=== PATIENT | female | born 1950 | race Caucasian/White ===

== ENCOUNTER 2020-11-23 11:32 | Outpatient (REF) | payer MEDICARE, SELFPAY ==
[2020-11-23 12:21] LABS: MANUAL DIFF FLAG NO
[2020-11-23 12:56] LABS: Basophils Absolute Auto 0.1 X10*3/uL (0.0-0.2); Basophils Percent Auto 1.6 % (0-2); Eosinophils Absolute Auto 0.4 X10*3/uL (0.0-0.4); Eosinophils Percent Auto 8.8 % (0-4); Hematocrit 39.7 % (37-47); Hemoglobin 12.8 g/dl (12.0-16.0); Imm Gran Abs Auto 0.01 X10*3/uL (0.00-0.03); Imm Gran Pct Auto 0.2 % (0.0-0.4); Lymphocytes Absolute Auto 1.6 X10*3/uL (1.2-4.9); Lymphocytes Percent Auto 31.5 % (20-40); Mean Corpuscular HGB Conc 32.2 g/dl (31.0-35.0); Mean Corpuscular Hemoglobin 30.7 pg (27.0-33.0); Mean Corpuscular Volume 95.2 fL (80-98); Mean Platelet Volume 11.2 fL (9.4-12.3); Monocytes Absolute Auto 0.6 X10*3/uL (0.1-1.2); Neutrophils Absolute Auto 2.4 X10*3/uL (2.0-8.3); Neutrophils Percent Auto 46.9 % (45-73); Platelet Count 246 X10*3/uL (160-400); Red Blood Count 4.17 X10*6/uL (4.20-5.50)
[2020-11-23 13:03] LABS: Glucose Urine UA NEG (NEG); Leukocyte Esterase Urine NEG (NEG); Nitrite Urine NEG (NEG); PH 5.5 (5.0-8.0); Specific Gravity - Urine 1.025 (1.005-1.025); Urine Blood NEG (NEG); Urine Ketones NEG (NEG); Urine Protein NEG (NEG-TRACE)
[2020-11-23 13:10] LABS: Appearance Urine CLEAR; Color Urine YELLOW
[2020-11-23 13:22] LABS: Alanine Aminotransferase 33 U/L (0-31); Albumin Level 4.5 g/dL (3.5-5.0); Alkaline Phosphatase 79 U/L (39-117); Anion Gap 12 (12-20); Aspartate Amino Transferase 29 U/L (5-31); Bilirubin Total 0.8 mg/dL (0.0-1.0); Blood Urea Nitrogen 24 mg/dL (9-16); Calcium 9.4 mg/dL (8.4-10.2); Carbon Dioxide 28 mmol/L (22-29); Chloride 105 mmol/L (96-108); Cholesterol 191 mg/dL; Estimated Glomerular Filt Rate > 60; Glucose Fasting 80 mg/dL (60-99); HDL Cholesterol 50 mg/dL; LDL Cholesterol Calculated 120 mg/dl; Potassium 3.8 mmol/L (3.3-5.1); Sodium 141 mmol/L (135-145); Total Protein 7.1 g/dL (6.5-8.0); Triglycerides 105 mg/dL
[2020-11-23 13:54] LABS: Thyroid Stimulating Hormone 0.52 uIU/mL (0.32-4.0)
== END 2020-11-23 11:33 | disposition home or self-care (01) ==
LOC: HO.LNP 11:32
PROVIDERS: PCP Internal Medicine; Visit Provider Internal Medicine
DX: E03.9 Hypothyroidism, unspecified (principal); D72.820 Lymphocytosis (symptomatic)
CPT/HCPCS: 80053; 80061; 81003; 84443; 85025

== ENCOUNTER 2020-11-27 16:03 | Outpatient (REF) | payer MEDICARE, SELFPAY ==
[2020-11-27 16:47] LABS: Blood Urea Nitrogen 25 mg/dL (9-16)
== END 2020-11-27 16:04 | disposition home or self-care (01) ==
LOC: HO.LNP 16:03
PROVIDERS: Visit Provider Internal Medicine
DX: R79.9 Abnormal finding of blood chemistry, unspecified (principal)
CPT/HCPCS: 84520

== ENCOUNTER 2020-12-29 10:10 | Outpatient (REF) | payer MEDICARE, SELFPAY ==
[2020-12-29 10:54] LABS: Blood Urea Nitrogen 19 mg/dL (9-16)
== END 2020-12-29 10:11 | disposition home or self-care (01) ==
LOC: HO.LNP 10:10
PROVIDERS: Visit Provider Internal Medicine
DX: R79.9 Abnormal finding of blood chemistry, unspecified (principal)
CPT/HCPCS: 84520

== ENCOUNTER 2021-11-27 10:17 | Outpatient (REF) | payer MEDICARE, SELFPAY ==
[2021-11-27 10:19] LABS: MANUAL DIFF FLAG NO
[2021-11-27 10:53] LABS: Basophils Percent Auto 0.9 % (0-2); Eosinophils Absolute Auto 0.1 X10*3/uL (0.0-0.4); Eosinophils Percent Auto 2.2 % (0-4); Hematocrit 38.6 % (37.0-47.0); Hemoglobin 12.5 g/dl (12.0-16.0); Imm Gran Abs Auto 0.01 X10*3/uL (0.00-0.03); Imm Gran Pct Auto 0.2 % (0.0-0.4); Lymphocytes Absolute Auto 1.7 X10*3/uL (1.2-4.9); Mean Corpuscular HGB Conc 32.4 g/dl (31.0-35.0); Mean Corpuscular Hemoglobin 31.2 pg (27.0-33.0); Mean Corpuscular Volume 96.3 fL (80.0-98.0); Monocytes Absolute Auto 0.4 X10*3/uL (0.1-1.2); Monocytes Percent Auto 9.9 % (2-11); Neutrophils Absolute Auto 2.1 x10*3/uL (2.0-8.3); Neutrophils Percent Auto 47.8 % (45-73); Platelet Count 225 X10*3/uL (160-400); Red Blood Count 4.01 X10*6/uL (4.20-5.50); Red Cell Distribution Width 13.1 % (11.0-16.0); White Blood Count 4.5 X10*3/uL (4.8-10.8)
[2021-11-27 11:01] LABS: Appearance Urine CLEAR; Color Urine YELLOW; Glucose Urine UA NEG (NEG); Leukocyte Esterase Urine NEG (NEG); Nitrite Urine NEG (NEG); Specific Gravity - Urine 1.025 (1.005-1.025); Urine Blood NEG (NEG); Urine Ketones NEG (NEG); Urine Protein NEG (NEG-TRACE)
[2021-11-27 11:10] LABS: Alanine Aminotransferase 21 U/L (0-31); Albumin Level 4.2 g/dL (3.5-5.0); Alkaline Phosphatase 76 U/L (39-117); Anion Gap 12 (12-20); Aspartate Amino Transferase 22 U/L (5-31); Bilirubin Total 0.9 mg/dL (0.0-1.0); Blood Urea Nitrogen 20 mg/dL (9-16); Carbon Dioxide 28 mmol/L (22-29); Chloride 106 mmol/L (96-108); Cholesterol 190 mg/dL; Estimated Glomerular Filt Rate > 60; Glucose Fasting 94 mg/dL (60-99); HDL Cholesterol 56 mg/dL; LDL Cholesterol Calculated 117 mg/dl; Potassium 4.2 mmol/L (3.3-5.1); Sodium 142 mmol/L (135-145); Triglycerides 86 mg/dL
[2021-11-27 11:31] LABS: TSH reflex Free T4 0.49 uIU/mL (0.32-4.0)
== END 2021-11-27 10:18 | disposition home or self-care (01) ==
LOC: HO.LNP 10:17
PROVIDERS: PCP Internal Medicine; Visit Provider Internal Medicine
DX: E03.9 Hypothyroidism, unspecified (principal); D72.820 Lymphocytosis (symptomatic)
CPT/HCPCS: 80053; 80061; 81003; 84443; 85025

== ENCOUNTER 2022-10-04 08:13 | Day surgery (SDC) | payer MEDICARE, SELFPAY ==
--- NOTE | 2022-10-03 11:58 | HO.ANESPROP2 ---
Documented by User: Leanna Naranjo NP 10/03/22 11:59 HPI - Anesthesia Eval Consult details Narrative: 72yo F for ?Colonoscopy [facility] Past Medical History Medical History (Updated 10/03/22 @ 10:46 by Gali Aguilar RN) Hypothyroidism Surgical History Surgical History (Updated 10/03/22 @ 10:46 by Gali Aguilar RN) H/O colonoscopy History of laparoscopy History of repair of ACL History of repair of inguinal hernia Social History Social History Patient Tobacco Use Status: Never used Tobacco Are you DNR?: No Advance Directives: No Advance Directives Information Provided: Yes Recently lost weight without trying: No Nutrition Risks: No Nutritional Risk Meds Allergies Allergy/AdvReac Type Severity Reaction Status Date / Time Penicillins [PCN] Allergy Hives Verified 10/04/22 08:34 Home Medications Medication Instructions Recorded Confirmed Last Taken Type cholecalciferol (vitamin D3) 25 mcg PO DAILY 10/03/22 10/03/22 10/02/22 History levothyroxine 200 mcg tablet 200 tab PO DAILY 10/03/22 10/04/22 10/03/22 History (Levoxyl) multivitamin 1 mg PO DAILY 10/03/22 10/04/22 10/02/22 History Exam Exam Date and Time: October 03, 2022 1158 Assessment and Plan Assessment Anesthesia Assessment: Chart Reviewed Documented by User: Kadeem Chin MD 10/05/22 17:16 [facility] Past Medical History Medical History (Updated 10/03/22 @ 10:46 by Gali Aguilar RN) Hypothyroidism Functional capacity: independent ambulation Family History Family history of problems with anesthesia: No Surgical History Surgical History (Updated 10/03/22 @ 10:46 by Gali Aguilar RN) H/O colonoscopy History of laparoscopy History of repair of ACL History of repair of inguinal hernia History of Problems with Anesthesia: No Social History Social History Patient Tobacco Use Status: Never used Tobacco Are you DNR?: No Advance Directives: No Advance Directives Information Provided: Yes Recently lost weight without trying: No Nutrition Risks: No Nutritional Risk Meds Allergies Allergy/AdvReac Type Severity Reaction Status Date / Time Penicillins [PCN] Allergy Hives Verified 10/04/22 08:34 Home Medications Medication Instructions Recorded Confirmed Last Taken Type cholecalciferol (vitamin D3) 25 mcg PO DAILY 10/03/22 10/03/22 10/02/22 History levothyroxine 200 mcg tablet 200 tab PO DAILY 10/03/22 10/04/22 10/03/22 History (Levoxyl) multivitamin 1 mg PO DAILY 10/03/22 10/04/22 10/02/22 History Exam Airway Mallampati Class: III TM Dist: >3cm Neck ROM: Full Loose/Missing/Broken Teeth: Yes (Implants , front upper tooth chipped ) Heart: S1,S2 Lungs: b/l breath sounds Assessment and Plan Assessment Anesthesia Assessment: Anesthesia Plan Discussed Final Anesthetic Review Family History of Problems with Anesthesia: No History of Problems with Anesthesia: No NPO: Yes ASA Class: II Final Preanesthetic Review: Meds/Allgs Chart Reviewed, Consent Obtained/Reviewed and Anes Risks/Benef Reviewed Patient Risk: Intermediate Procedure Risk: Intermediate Anesthetic Plan Anesthetic Plan: MAC: Disposition: Standard PACU
[2022-10-04 08:23] VITALS: BMI 23.8
[2022-10-04 08:25] VITALS: BP 107/80; PULSE 99; RESP 20; TEMP 36.8; O2SAT 99
[2022-10-04] MEDS: Lactated Ringers 1,000 ML 100 ML IVCONT (08:46)
--- NOTE | 2022-10-04 10:33 | PM.OP ---
Brief Operative Note Date of Service: 10/04/22 Pre-op diagnosis: Screening Post-op diagnosis: other (Diverticulosis, Internal/External hemorrhoids) Procedure: Colonoscopy to the cecum and TI Surgeon: Jhony Love Anesthesia: MAC Was an Shipper And Receiving used for this Procedure?: No Estimated blood loss (mL): 0 Pathology: none sent Condition: stable Disposition: PACU
[2022-10-04 10:35] VITALS: BP 98/61; PULSE 71; RESP 17; TEMP 36.2; O2SAT 99
[2022-10-04 10:50] VITALS: BP 104/72; PULSE 71; RESP 18; TEMP 36.8; O2SAT 97
--- NOTE | 2022-10-04 11:02 | OP_ITS ---
SURGEON: Jhony Love MD INDICATIONS: The patient presents for evaluation of colorectal cancer screening. Full consent obtained from her for this, including risks of bleeding and perforation. PREOPERATIVE DIAGNOSIS: Colorectal cancer screening. POSTOPERATIVE DIAGNOSIS: PROCEDURE PERFORMED: Colonoscopy to the cecum and terminal ileum. ESTIMATED BLOOD LOSS: COMPLICATIONS: ANESTHESIA: Monitored anesthesia care. ASSISTANTS: SPECIMENS: POSTOPERATIVE DIAGNOSES: Colorectal cancer screening, diverticulosis, internal and external hemorrhoids. DESCRIPTION OF PROCEDURE: The patient was placed in the left lateral decubitus position. The digital rectal exam revealed external hemorrhoidal tissue. The Olympus video pediatric colonoscope was entered into the rectum and advanced to the cecum with the assistance of abdominal wall pressure. Once in the cecum, I did identify normal-appearing cecal pouch with appendiceal orifice and a normal-appearing ileocecal valve. The terminal ileum was cannulated and appeared normal. The scope was withdrawn back in the colon. The entire cecum and ileocecal valve appeared normal. The appendiceal orifice appeared normal. The scope was then slowly withdrawn assessing all mucosal surfaces carefully. Preparation was excellent. I did not visualize any sign of polyps, colitis, or angiodysplasia. There was a mild amount of sigmoid diverticulosis. In the rectum, scope was retroflexed visualizing internal hemorrhoids, but no other pathology. The rectal mucosa appeared normal. The scope was straightened and withdrawn from the patient. She tolerated the procedure well and was returned to the recovery area in stable condition. IMPRESSION: 1. Diverticulosis. 2. Internal and external hemorrhoids. PLAN: Given that this was her 3rd negative colonoscopy and has no family history of colon cancer, she probably will not need any further screening colonoscopies since 10 years from now she will be 82 and the current guidelines recommend holding off on screening colonoscopies at that age. As such, she will see me on a p.r.n. basis. MD NIRU Alexander/JESSE / [id number] MTDD
== END 2022-10-04 11:32 | disposition home or self-care (01) ==
PROVIDERS: PCP Internal Medicine; Visit Provider Internal Medicine
PROC: 0DJD8ZZ Inspection of Lower Intestinal Tract, Via Natural or Artificial Opening Endoscopic (ICD-10-PCS; CPT 45378; principal; 2022-10-04 09:30)
DX: Z12.11 Encounter for screening for malignant neoplasm of colon (principal); K57.30 Diverticulosis of large intestine without perforation or abscess without bleeding; K64.8 Other hemorrhoids; K64.4 Residual hemorrhoidal skin tags; E03.9 Hypothyroidism, unspecified; Z79.899 Other long term (current) drug therapy
CPT/HCPCS: G0121

== ENCOUNTER 2022-12-02 10:45 | Outpatient (REF) | payer MEDICARE, SELFPAY ==
[2022-12-02 10:49] LABS: MANUAL DIFF FLAG NO
[2022-12-02 10:53] LABS: Basophils Absolute Auto 0.1 X10*3/uL (0.0-0.2); Basophils Percent Auto 1.8 % (0-2); Eosinophils Absolute Auto 0.3 X10*3/uL (0.0-0.4); Eosinophils Percent Auto 6.9 % (0-4); Hematocrit 40.2 % (37.0-47.0); Hemoglobin 13.2 g/dl (12.0-16.0); Lymphocytes Absolute Auto 1.6 X10*3/uL (1.2-4.9); Lymphocytes Percent Auto 41.4 % (20-40); Mean Corpuscular HGB Conc 32.8 g/dl (31.0-35.0); Mean Corpuscular Hemoglobin 30.6 pg (27.0-33.0); Mean Corpuscular Volume 93.1 fL (80.0-98.0); Monocytes Absolute Auto 0.4 X10*3/uL (0.1-1.2); Monocytes Percent Auto 10.5 % (2-11); Neutrophils Absolute Auto 1.5 x10*3/uL (2.0-8.3); Neutrophils Percent Auto 39.4 % (45-73); Platelet Count 228 X10*3/uL (160-400); Red Blood Count 4.32 X10*6/uL (4.20-5.50); Red Cell Distribution Width 12.9 % (11.0-16.0); White Blood Count 3.9 X10*3/uL (4.8-10.8)
[2022-12-02 11:04] LABS: Appearance Urine Clear; Color Urine Yellow; Glucose Urine UA Negative (Negative); Leukocyte Esterase Urine Trace (Negative); Nitrite Urine Negative (Negative); UMIC TRIGGER UACC YES; Urine Blood Negative (Negative); Urine Ketones Negative (Negative); Urine Protein Negative (Neg-Trace)
[2022-12-02 11:16] LABS: Bacteria Urine None Seen (None Seen); Hyaline Casts Urine 0-2 /LPF (0-2); RBC Urine 0-2 /HPF (0-2); Squamous Epithelial Cell Urine 0-2 /HPF (0-2); WBC Urine 0-5 /HPF (0-5)
[2022-12-02 11:21] LABS: Calcium Oxalate Crystals Urine Present
[2022-12-02 11:28] LABS: Alanine Aminotransferase 24 U/L (0-31); Albumin Level 4.2 g/dL (3.5-5.0); Alkaline Phosphatase 84 U/L (39-117); Anion Gap 13 (12-20); Aspartate Amino Transferase 25 U/L (5-31); Bilirubin Total 0.9 mg/dL (0.0-1.0); Blood Urea Nitrogen 21 mg/dL (9-16); Calcium 9.8 mg/dL (8.4-10.2); Carbon Dioxide 28 mmol/L (22-29); Chloride 108 mmol/L (96-108); Cholesterol 190 mg/dL; Estimated Glomerular Filt Rate > 60; Glucose Fasting 85 mg/dL (60-99); HDL Cholesterol 54 mg/dL; LDL Cholesterol Calculated 122 mg/dl; Potassium 4.5 mmol/L (3.3-5.1); Sodium 144 mmol/L (135-145); Total Protein 7.1 g/dL (6.5-8.0); Triglycerides 72 mg/dL
[2022-12-02 11:44] LABS: TSH reflex Free T4 0.67 uIU/mL (0.32-4.0)
== END 2022-12-02 10:46 | disposition home or self-care (01) ==
LOC: HO.LNP 10:45
PROVIDERS: Visit Provider Internal Medicine
DX: E03.9 Hypothyroidism, unspecified (principal); D72.820 Lymphocytosis (symptomatic)
CPT/HCPCS: 80053; 80061; 81001; 81003; 84443; 85025

== ENCOUNTER 2022-12-09 10:54 | Outpatient (REF) | payer MEDICARE, SELFPAY ==
[2022-12-09 10:57] LABS: MANUAL DIFF FLAG NO
[2022-12-09 11:32] LABS: Basophils Absolute Auto 0.1 X10*3/uL (0.0-0.2); Basophils Percent Auto 1.6 % (0-2); Eosinophils Absolute Auto 0.2 X10*3/uL (0.0-0.4); Eosinophils Percent Auto 3.6 % (0-4); Hematocrit 37.6 % (37.0-47.0); Hemoglobin 12.3 g/dl (12.0-16.0); Lymphocytes Absolute Auto 1.6 X10*3/uL (1.2-4.9); Lymphocytes Percent Auto 32.7 % (20-40); Mean Corpuscular HGB Conc 32.7 g/dl (31.0-35.0); Mean Corpuscular Hemoglobin 30.7 pg (27.0-33.0); Mean Corpuscular Volume 93.8 fL (80.0-98.0); Mean Platelet Volume 10.5 fL (9.4-12.3); Monocytes Absolute Auto 0.5 X10*3/uL (0.1-1.2); Monocytes Percent Auto 9.6 % (2-11); Neutrophils Absolute Auto 2.6 x10*3/uL (2.0-8.3); Neutrophils Percent Auto 52.5 % (45-73); Platelet Count 218 X10*3/uL (160-400); Red Blood Count 4.01 X10*6/uL (4.20-5.50); Red Cell Distribution Width 12.8 % (11.0-16.0)
== END 2022-12-09 10:55 | disposition home or self-care (01) ==
LOC: HO.LNP 10:54
PROVIDERS: Visit Provider Internal Medicine
DX: D72.820 Lymphocytosis (symptomatic) (principal)
CPT/HCPCS: 85025

== ENCOUNTER 2023-06-12 11:00 | Outpatient (REF) | payer MEDICARE, SELFPAY ==
[2023-06-12 11:52] LABS: TSH reflex Free T4 1.67 uIU/mL (0.32-4.0)
== END 2023-06-12 11:01 | disposition home or self-care (01) ==
LOC: HO.LNP 11:00
PROVIDERS: Visit Provider Internal Medicine
DX: E03.9 Hypothyroidism, unspecified (principal)
CPT/HCPCS: 84443

== ENCOUNTER 2023-12-05 12:10 | Outpatient (REF) | payer MEDICARE, SELFPAY ==
[2023-12-05 12:13] LABS: MANUAL DIFF FLAG NO
[2023-12-05 13:19] LABS: Basophils Absolute Auto 0.1 X10*3/uL (0.0-0.2); Basophils Percent Auto 1.3 % (0-2); Eosinophils Absolute Auto 0.2 X10*3/uL (0.0-0.4); Hematocrit 38.3 % (37.0-47.0); Hemoglobin 12.6 g/dl (12.0-16.0); Imm Gran Abs Auto 0.01 X10*3/uL (0.00-0.03); Imm Gran Pct Auto 0.3 % (0.0-0.4); Lymphocytes Absolute Auto 1.5 X10*3/uL (1.2-4.9); Lymphocytes Percent Auto 39.4 % (20-40); Mean Corpuscular HGB Conc 32.9 g/dl (31.0-35.0); Mean Corpuscular Volume 94.3 fL (80.0-98.0); Mean Platelet Volume 10.6 fL (9.4-12.3); Monocytes Absolute Auto 0.4 X10*3/uL (0.1-1.2); Monocytes Percent Auto 10.7 % (2-11); Neutrophils Absolute Auto 1.7 x10*3/uL (2.0-8.3); Neutrophils Percent Auto 43.3 % (45-73); Platelet Count 215 X10*3/uL (160-400); Red Blood Count 4.06 X10*6/uL (4.20-5.50); White Blood Count 3.8 X10*3/uL (4.8-10.8)
[2023-12-05 13:31] LABS: Appearance Urine Clear; Color Urine Yellow; Glucose Urine UA Negative (Negative); Leukocyte Esterase Urine Negative (Negative); Nitrite Urine Negative (Negative); Urine Blood Negative (Negative); Urine Ketones Negative (Negative); Urine Protein Negative (Neg-Trace)
[2023-12-05 13:44] LABS: Bacteria Urine None Seen (None Seen); Calcium Oxalate Crystals Urine Present; Hyaline Casts Urine 0-2 /LPF (0-2); RBC Urine 0-2 /HPF (0-2); Squamous Epithelial Cell Urine 0-2 /HPF (0-2); WBC Urine 0-5 /HPF (0-5)
[2023-12-05 14:12] LABS: Alanine Aminotransferase 23 U/L (0-31); Albumin Level 4.1 g/dL (3.5-5.0); Alkaline Phosphatase 75 U/L (39-117); Anion Gap 12 (12-20); Aspartate Amino Transferase 25 U/L (5-31); Bilirubin Total 0.7 mg/dL (0.0-1.0); Blood Urea Nitrogen 21 mg/dL (9-16); Carbon Dioxide 28 mmol/L (22-29); Chloride 108 mmol/L (96-108); Cholesterol 198 mg/dL (<200); Estimated Glomerular Filt Rate > 60; Glucose Fasting 87 mg/dL (60-99); HDL Cholesterol 58 mg/dL (>40); LDL Cholesterol Calculated 127 mg/dL (<100); Potassium 4.1 mmol/L (3.3-5.1); Sodium 144 mmol/L (135-145); Total Protein 7.2 g/dL (6.5-8.0); Triglycerides 66 mg/dL (<150)
[2023-12-05 14:36] LABS: TSH reflex Free T4 1.52 uIU/mL (0.32-4.0)
== END 2023-12-05 12:11 | disposition home or self-care (01) ==
LOC: HO.LNP 12:10
PROVIDERS: Visit Provider Internal Medicine
DX: E03.9 Hypothyroidism, unspecified (principal); D72.820 Lymphocytosis (symptomatic)
CPT/HCPCS: 80053; 80061; 81001; 84443; 85025

== ENCOUNTER 2024-06-14 10:52 | Outpatient (REF) | payer MEDICARE, SELFPAY ==
[2024-06-14 12:01] LABS: TSH reflex Free T4 1.69 uIU/mL (0.32-4.0)
== END 2024-06-14 10:53 | disposition home or self-care (01) ==
LOC: HO.LNP 10:52
PROVIDERS: Visit Provider Internal Medicine
DX: E03.9 Hypothyroidism, unspecified (principal)
CPT/HCPCS: 84443

== ENCOUNTER 2024-12-06 07:30 | Outpatient (REF) | payer MEDICARE, SELFPAY ==
[2024-12-06 10:57] LABS: MANUAL DIFF FLAG NO
[2024-12-06 11:18] LABS: Basophils Percent Auto 1.1 % (0-2); Eosinophils Absolute Auto 0.1 X10*3/uL (0.0-0.4); Eosinophils Percent Auto 3.2 % (0-4); Hematocrit 37.1 % (37.0-47.0); Hemoglobin 12.2 g/dl (12.0-16.0); Imm Gran Abs Auto 0.01 X10*3/uL (0.00-0.03); Imm Gran Pct Auto 0.3 % (0.0-0.4); Lymphocytes Absolute Auto 1.4 X10*3/uL (1.2-4.9); Lymphocytes Percent Auto 41.1 % (20-40); Mean Corpuscular HGB Conc 32.9 g/dl (31.0-35.0); Mean Corpuscular Hemoglobin 31.4 pg (27.0-33.0); Mean Corpuscular Volume 95.6 fL (80.0-98.0); Mean Platelet Volume 11.6 fL (9.4-12.3); Monocytes Absolute Auto 0.4 X10*3/uL (0.1-1.2); Monocytes Percent Auto 11.5 % (2-11); Neutrophils Absolute Auto 1.5 x10*3/uL (2.0-8.3); Neutrophils Percent Auto 42.8 % (45-73); Platelet Count 198 X10*3/uL (160-400); Red Blood Count 3.88 X10*6/uL (4.20-5.50); Red Cell Distribution Width 12.8 % (11.0-16.0); White Blood Count 3.5 X10*3/uL (4.8-10.8)
[2024-12-06 11:19] LABS: Appearance Urine Clear; Color Urine Yellow; Glucose Urine UA Negative (Negative); Leukocyte Esterase Urine Trace (Negative); Nitrite Urine Negative (Negative); PH 5.5 (5.0-9.0); Specific Gravity - Urine 1.015 (1.005-1.025); UMIC TRIGGER UACC YES; Urine Blood Negative (Negative); Urine Ketones Negative (Negative); Urine Protein Negative (Neg-Trace)
[2024-12-06 11:22] LABS: Bacteria Urine None Seen (None Seen); Hyaline Casts Urine 0-2 /LPF (0-2); RBC Urine 0-2 /HPF (0-2); Squamous Epithelial Cell Urine 0-2 /HPF (0-2); WBC Urine 0-5 /HPF (0-5)
[2024-12-06 11:46] LABS: Alanine Aminotransferase 16 U/L (0-31); Albumin Level 3.9 g/dL (3.5-5.0); Alkaline Phosphatase 80 U/L (39-117); Anion Gap 13 (12-20); Aspartate Amino Transferase 25 U/L (5-31); Bilirubin Total 0.6 mg/dL (0.0-1.0); Blood Urea Nitrogen 14 mg/dL (9-16); Calcium 9.6 mg/dL (8.4-10.2); Carbon Dioxide 26 mmol/L (22-29); Chloride 110 mmol/L (96-108); Cholesterol 154 mg/dL (<200); Estimated Glomerular Filt Rate > 60; Glucose Fasting 91 mg/dL (60-99); HDL Cholesterol 51 mg/dL (>40); LDL Cholesterol Calculated 91 mg/dL (<100); Potassium 4.1 mmol/L (3.3-5.1); Sodium 145 mmol/L (135-145); Total Protein 7.4 g/dL (6.5-8.0); Triglycerides 61 mg/dL (<150)
[2024-12-06 11:49] LABS: TSH reflex Free T4 1.27 uIU/mL (0.32-4.0)
--- OUTSIDE RECORDS SUMMARY | 2024-12-06 12:53 | XMS_ITS ---
Author Organization Anthony Bee MD Address [address] [place], [place] [id number] Care Team Providers Care Business Information Analyst Name Role Phone Anthony Bee Primary Care Provider Results Component Value Reference Range Notes Complete Blood Count Auto Di ff (Not yet reviewed by provider) Interpretation: Performing Lab:[facility], [address] [place] [phone] Notes/Report: White Blood Count 3.5 4.8-10.8 X10*3/uL [...] NRBC Abs Auto 0.000 0.0-0.012 X10*3/uL Comprehensive Ward. Panel Fa st (Not yet reviewed by provider) Interpretation: Performing Lab:[address] [phone] Notes/Report: Sodium 145 135-145 mmol/L Potassium 4.1 [...] 3.5-5.0 g/dL Alkaline Phosphatase 80 39-117 U/L UA ClnCatch+Micro w/rflx Cul t (Not yet reviewed by provider) Interpretation: Performing Lab:[facility], [address] [place] [phone] Notes/Report: [id number] 0730 Urine, Clean Catch Color Urine Yellow Appearance Urine Clear PH 5.5 5.0-9.0 Glucose Urine UA Negative Negative mg/dL Urine Blood Negative Negative Specific [place] - Urine 1.015 1.005-1.025 Urine Protein Negative Neg-Trace mg/dL Urine Ketones Negative Negative mg/dL Nitrite Urine Negative Negative Leukocyte Esterase Urine Trace Negative RBC Urine 0-2 0-2 /HPF WBC Urine 0-5 0-5 /HPF Squamous Epithelial Cell Urine 0-2 0-2 /HPF Bacteria Urine None Seen None Seen Hyaline Casts Urine 0-2 0-2 /LPF Lipid Panel Reviewed date:12/06/2024 12:32:40 PM Interpretation: Performing Lab:[facility], [address] [place] [phone] Notes/Report: Triglycerides 61 <150 mg/dL Desirable Triglyceride: [...] T4 Reviewed date:12/06/2024 12:30:02 PM Interpretation: Performing Lab:[address] [phone] Notes/Report: TSH reflex Free T4 1.27 0.32-4.0 uIU/mL REASON FOR VISIT FASTING LABS Encounters Encounter Location Date Provider Diagnosis Anthony Bee MD [address] [place], [place] [id number] 12/06/2024 Anthony Bee Acquired hypothyroidism E03.9 and Lymphocytosis D72.820 Assessments Encounter Date Diagnosis (ICD Code) Assessment Notes Treatment Notes Treatment Clinical Notes Section Notes 12/06/2024 Acquired hypothyroidism (ICD-10 - E03.9) 12/06/2024 Lymphocytosis (ICD-10 - D72.820) Plan Of Treatment Pending Test Test Name Order Date Complete Blood Count Auto Diff Comprehensive Ward. Panel Fast UA ClnCatch+Micro w/rflx Cult 12/06/2024 Next Appt Details Provider Name:Anthony leach, 12/13/2024 09:30:00 AM, [address] [facility], [address], [place], [place], [phone], Progress Notes * Tatiana DEVI MDOB: [birth year] (74 yo F)Acc No.[id number]:12/06/2024 Progress Note Patient:?Tatiana DEVI Provider:?Anthony Bee MD :1950???Age:74 Y???Sex:Female D ate:12/06/2024 Address:[address] [place] [address], [place] [id number] Subjective: * Chief Complaints: * ???1. FASTING LABS. * Medical History:? Objective: * Vitals:? Assessment: * Assessment: 1.?Acquired hypothyroidism - E03.9 (Primary)???2.?Lymphocytosis - D72.820??? Plan: * Treatment: 2.?Lymphocytosis?LAB: Complete Blood Count Auto Diff (Collection Date & Time - 12/06/2024 07:30 AM) ?LAB: Comprehensive Ward. Panel Fast (Collection Date & Time - 12/06/2024 07:30 AM) ?LAB: UA ClnCatch+Micro w/rflx Cult (Collection Date & Time - 12/06/2024 07:30 AM) ?LAB: Lipid Panel (Collection Date & Time - 12/06/2024 07:30 AM) ?LAB: TSH reflex Free T4 (Collection Date & Time - 12/06/2024 07:30 AM) * Procedure Codes:?13766 VENIP UNCT, ROUTINE* * * The named appointment provid er may or may not be the originator of this progress note, and it is not deemed complete until electronically signed by the appointment provider. Sign off status: Pending * Provider:?Anthony Bee MD Date:?0 12/06/2024 Generated for Oniel sharpe/Evette/Avis on:?12/06/2024 12:52 PM EST
--- OUTSIDE RECORDS SUMMARY | 2024-12-06 12:53 | XMS_ITS | Patient Health Record ---
Author Organization [facility] Address [address] [place] [address] Care Team Providers Care Oral Surgery Assistant Name Role Phone Rohit MATIAS, Anthony Primary Care Provider Jhony Josue [phone] ALLERGIES Allergen (clinical drug ingredient) Drug/Non Drug Allergy documented on EMR Reaction Allergy Type Onset Date Status PCN (uncoded) Unknown Allergy Active REASON FOR REFERRAL No Information MEDICATIONS Medication SIG (Take, Route, Frequency, Duration) Notes Start Date End Date Status Vitamin D (Cholecalciferol) 25 MCG (1000 UT) 1 capsule Orally Once a day for 30 day(s) Active Levoxyl Active Multivitamin - as directed Orally Active IMMUNIZATIONS Vaccine Route Administration Date Status Comme nts Influenza Unknown 08/07/2022 Administered SOCIAL HISTORY Sex Assigned At : Social History Observation Description Sex Assigned At Unknown Alcohol Screen Question Answer Notes Did you have a drink contain ing alcohol in the past year? Yes How often did you have a dri nk containing alcohol in the past year? Monthly or less (1 point) How many drinks did you have on a typical day when you were drinking in the past year? 1 or 2 drinks (0 point) How often did you have 6 or more drinks on one occasion in the past year? Never (0 point) Points 1 Interpretation Negative PROBLEMS Problem Type ICD Code Onset Dates Problem Status W/U Status Risk SNOMED Code Notes Problem Colon cancer screening (Z12.11) Active confirmed Colon cancer screening (287663291) Problem Preprocedural examination (Z01.818) Active confirmed Preprocedural examination (284530298972515) Problem Diverticulosis of colon (K57.30) Active confirmed Diverticulosi s of colon (771729989) PLAN OF TREATMENT Future Test Test Name Order Date COLONOSCOPY 12/11/2011 COLONOSCOPY 08/14/2022 Insurance Providers Payer Name Payer Address Payer Phone Subscriber Number Group Number Insured Name Patient Relationship to Insured Coverage Start Date Coverage End Date MEDICARE OF [place] [address] [place] [address] [id number] NELSY DEVI Self - patient is the insured [employer] ATT[employer] CLAIMS [address] [place] [address] [phone] [id number] NELSY DEVI Self - patient is the insured MEDICAL (GENERAL) HISTORY Medical History History ICD Code Hypothyroidism Denies [place],DM,CVA,Lung disease,renal dise ase Negative screening colonosco py in 03/2012 with me, and a negative screening colonoscopy in approximately 2001 at [facility]. Surgical History Surgery Date(Month/Year) Laparoscopy for an ovarian cyst Inguinal Hernia age 5 Torn Right ACL
--- OUTSIDE RECORDS SUMMARY | 2024-12-06 12:53 | XMS_ITS | Patient Health Record ---
Author Organization Anthony Bee MD Address [address] [place], [place] [id number] Care Team Providers Care Legal Secretary Receptionist Name Role Phone Anthony Bee Primary Care Provider [phone] Allergies Allergen (clinical drug ingredient) Drug/Non Drug Allergy documented on EMR Reaction Allergy Type Onset Date Status penicillin (uncoded) hives Allergy Active Results Component Value Reference Range Notes TSH reflex Free T4 Reviewed date:06/14/2024 04:03:54 PM Interpretation: Performing Lab:[address] [phone] Notes/Report: TSH reflex Free T4 1.69 0.32-4.0 uIU/mL Complete Blood Count Auto Di ff (Not yet reviewed by provider) Interpretation: Performing Lab:[address] [phone] Notes/Report: White Blood Count 3.5 4.8-10.8 X10*3/uL [...] NRBC Abs Auto 0.000 0.0-0.012 X10*3/uL Comprehensive [place]. Panel Fa st (Not yet reviewed by provider) Interpretation: Performing Lab:[facility], [address] [place] [phone] Notes/Report: Sodium 145 135-145 mmol/L Potassium 4.1 [...] (Not yet reviewed by provider) Interpretation: Performing Lab:[facility], [address] [place] [phone] Notes/Report: [id number] Urine, Clean Catch Color Urine Yellow Appearance Urine Clear PH 5.5 5.0-9.0 Glucose Urine UA Negative Negative mg/dL Urine Blood Negative Negative Specific [place] - Urine 1.015 1.005-1.025 Urine Protein Negative Neg-Trace mg/dL Urine Ketones Negative Negative mg/dL Nitrite Urine Negative Negative Leukocyte Esterase Urine Trace Negative RBC Urine 0-2 0-2 /HPF WBC Urine 0-5 0-5 /HPF Squamous Epithelial Cell Urine 0-2 0-2 /HPF Bacteria Urine None Seen None Seen Hyaline Casts Urine 0-2 0-2 /LPF Lipid Panel Reviewed date:12/06/2024 12:32:40 PM Interpretation: Performing Lab:[facility], [address] [place] [phone] Notes/Report: Triglycerides 61 <150 mg/dL Desirable Triglyceride: [...] T4 Reviewed date:12/06/2024 12:30:02 PM Interpretation: Performing Lab:[facility], [address] [place] [phone] Notes/Report: TSH reflex Free T4 1.27 0.32-4.0 uIU/mL Hold Gold Reviewed date:06/14/2024 04:04:04 PM Interpretation: Performing Lab:[facility], [address] [place] [address] Notes/Report: Denny Joshi See Note Specimen held untested for 24 hours; Call to request Chemistry testing. Denny Joshi Reviewed date:12/06/2024 12:29:12 PM Interpretation: Performing Lab:[facility], [address] [place] [address] Notes/Report: Denny Joshi See Note Specimen held untested for 24 hours; Call to request Chemistry testing. Reason For Referral No Information Medications Medication SIG (Take, Route, Frequency, Duration) Notes Start Date End Date Status Levoxyl 100 MCG TAKE 1 TABLET ONCE D AILY for 90 Active Aleve 220 MG 1 tablet with food o r milk as needed Orally every 12 hrs Not-Taking Multi For Her 50+ - as directed Orally Active Vitamin D-[address] 25 MCG (1000 UT) 2 tablets Orally Once a day Active Immunizations Vaccine Route Administration Date Status Comme nts Flu Vaccine Unknown 07/08/2012 Administered Flu Vaccine Unknown 07/23/[address] [facility] Fluarix Quadrivalent IM Intramuscular 06/27/2015 Administered Shingles IM Intramuscular 04/22/2016 Administered Fluarix Quadrivalent IM Intramuscular 07/02/2016 Administered PPSV23 (Pnemovax) IM Intramuscular 11/15/2016 Administered Fluarix Quadrivalent IM Intramuscular 07/01/2017 Administered Prevnar 13 IM Intramuscular 11/18/2017 Administered Fluarix Quadrivalent IM Intramuscular 07/21/2018 Administered TDaP IM Intramuscular 12/15/2017 Administered given at the [facility] in [place]. Fluarix Quadrivalent IM Intramuscular 07/02/2019 Administered Shingrix IM Intramuscular 05/09/2020 Administered [facility]. Influenza High Dose Unknown 07/09/2020 Administered [facility] Sh[facility] Unknown 07/09/2020 Administered [facility] SARS-COV-2 Pfizer Unknown 11/25/2020 Administered SARS-COV-2 Pfizer Unknown 12/18/2020 Administered SARS-COV-2 Pfizer Unknown 07/01/2021 Administered Influenza High Dose IM Intramuscular 06/26/2023 Administered Influenza High Dose IM Intramuscular 06/14/2024 Administered Social History Tobacco Use: Social History Observation Description Date Details (start date - stop date) Never Smoker NA - NA Tobacco Use/Smoking Question Answer Notes Patient is a nonsmoker Additional Findings: Tobacco Non-User Cu rrent non-smoker, currently using no form of tobacco Alcohol Screen Question Answer Notes Did you [...] Never (0 point) Points 1 Interpretation Negative Problems Problem Type SNOMED Code ICD Code Onset Dates Problem Status W/U Status Risk Notes Problem 92081196 Lymphocytosis (D72.820) Active confirmed Problem 381689121 Acquired hypothyroidism (E03.9) Active confirmed Vital Signs Blood pressure diastolic 68 mm Hg 06/21/2024 liliana ght is down 3 pounds since 12-12-23 Height 70 in 06/21/2024 weight is down 3 pounds since 12-12-23 Blood pressure systolic 102 mm Hg 06/21/2024 weig ht is down 3 pounds since 12-12-23 Weight 164 lbs 06/21/2024 weight is down 3 pounds since 12-12-23 BMI 23.53 kg/m2 06/21/2024 weight is down 3 pounds since 12-12-23 Encounters Encounter Location Date Provider Diagnosis Anthony Bee MD [address] [place] [id number] 06/14/2024 Anthony Bee Acquired hypothyroidism E03.9 and Encounter for immunization Z23 Anthony Bee MD [address] [place] [id number] 12/06/2024 Anthony Bee Acquired hypothyroidism E03.9 and Lymphocytosis D72.820 Anthony Bee MD [address] [place] [id number] 12/12/2023 Anthony Bee Acquired hypothyroidism E03.9 and Lymphocytosis D72.820 Anthony Bee MD [address] [place] [id number] 06/21/2024 Anthony Bee Acquired hypothyroidism E03.9 Assessments Encounter Date Diagnosis (ICD Code) Assessment Notes Treatment Notes Treatment Clinical Notes Section Notes 06/14/2024 Acquired hypothyroidism (ICD-10 - E03.9) 06/14/2024 Encounter for immunization (ICD-10 - Z23) 12/06/2024 Acquired hypothyroidism (ICD-10 - E03.9) 12/12/2023 Acquired hypothyroidism (ICD-10 - E03.9) stable, will continue current regiment 12/12/2023 Lymphocytosis (ICD-10 - D72.820) hs resolved, will continue to monitor 06/21/2024 Acquired hypothyroidism (ICD-10 - E03.9) doing well on present meds, at goal 12/06/2024 Lymphocytosis (ICD-10 - D72.820) Plan Of Treatment Pending Test Test Name Order Date Electrocardiogram (EKG) 11/15/2016 Electrocardiogram (EKG) 10/27/2015 Electrocardiogram (EKG) 11/14/2017 Electrocardiogram (EKG) 11/19/2019 Complete Blood Count Auto Diff 5 Comprehensive [place]. Panel Fast 5 UA ClnCatch+Micro w/rflx Cult 12/06/2024 Next Appt Details Provider Name:Anthony Holder ier, 12/13/2024 09:30:00 AM, [address] [place] [address], [address], [place], [place], [phone], Insurance Providers Payer Name Payer Address Payer Phone Subscriber Number Group Number Insured Name Patient Relationship to Insured Coverage Start Date Coverage End Date [employer] [address] [place] [address] [id number] Tatiana Rowley Self - patient is the insured [employer] [place] [address] [place] [phone] [id number] Tatiana Rowley Self - patient is the insured Medical (General) History Medical History History ICD Code colonoscopy 2011 due in 10 years (Dr Bergman ss)colonoscopy 2022 neg no other
--- OUTSIDE RECORDS SUMMARY | 2024-12-06 12:53 | XMS_ITS ---
Author Organization Anthony Bee MD Address [address] [place] [phone] Care Team Providers Care Cement [employer] [address] Name Role Phone Anthony Bee Primary Care Provider Results Component Value Reference Range Notes TSH reflex Free T4 Reviewed date:06/14/2024 04:03:54 PM Interpretation: Performing Lab:[facility], [address] [place] [phone] Notes/Report: TSH reflex Free T4 1.69 0.32-4.0 uIU/mL REASON FOR VISIT TSH REFLEX FREE T4 Immunizations Vaccine Route Administration Date Status Comme nts Influenza High Dose IM Intramuscular 06/14/2024 Administer ed Encounters Encounter Location Date Provider Diagnosis Anthony Bee MD [address] [place] [phone] 06/14/2024 Anthony Bee Acquired hypothyroidism E03.9 and Encounter for immunization Z23 Assessments Encounter Date Diagnosis (ICD Code) Assessment Notes Treatment Notes Treatment Clinical Notes Section Notes 06/14/2024 Acquired hypothyroidism (ICD-10 - E03.9) 06/14/2024 Encounter for immunization (ICD-10 - Z23) Plan Of Treatment Next Appt Details Provider Name:Anthony leach, 12/13/2024 09:30:00 AM, [address] [place] [address], [address] [place] [address], [phone], Progress Notes * LANAEmmy CASTORENAboogie MATIASOB: [birth year] (74 yo F)Acc No.[id number]:06/14/2024 Progress Note Patient:Tatiana SALEEM Provider:?Anthony Bee MD :1950???Age:74 Y???Sex:Female D ate:06/14/2024 Address:[address] [place] [address] [id number] Subjective: * Chief Complaints: * ???1. TSH REFLEX FREE T4. * Medical History:? Objective: * Vitals:? Assessment: * Assessment: 1.?Encounter for immunizatio n - Z23 (Primary)???2.?Acquired hypothyroidism - E03.9??? Plan: * Treatment: * Immunizations:? Influenza High Dose : 0.5 mL (Dose No:1) (Route: Intramuscular) given by Tatiana Genao , Office Staff on Left Deltoid * Procedure Codes:?15805 FLU V ACC PRSV FREE INC ANTIG, G0008 ADMN FLU VAC NO FEE SCHED SAME DAY, 22864 VENIPUNCT, ROUTINE* * Preventive Medicine:? ??Immunizations:?Influenza?Have you had a flu shot since the most recent June 06??Yes.? * * The named appointment provid er may or may not be the originator of this progress note, and it is not deemed complete until electronically signed by the appointment provider. Sign off status: Pending * Provider:?Anthony Bee MD Date:?0 06/14/2024 Generated for Oniel sharpe/Evette/eTransmitting on:?12/06/2024 12:52 PM EST
--- OUTSIDE RECORDS SUMMARY | 2024-12-06 12:53 | XMS_ITS ---
Author Organization Anthony Bee MD Address [address] [place], [place] [phone] Care Team Providers Care Personnel And Payroll Technician Name Role Phone Anthony Bee Primary Care Provider Allergies Allergen (clinical drug ingredient) Drug/Non Drug Allergy documented on EMR Reaction Allergy Type Onset Date Status penicillin (uncoded) hives Allergy Active REASON FOR VISIT 6 MO F/U Medications Medication SIG (Take, Route, Frequency, Duration) Notes Start Date End Date Status Levoxyl 100 MCG take 1 tablet once d aily Orally Once a day Active Aleve 220 MG 1 tablet with food o r milk as needed Orally every 12 hrs Not-Taking Multi For Her 50+ - as directed Orally Active Vitamin D-[address] 25 MCG (1000 UT) 2 tablets Orally Once a day Active Vital Signs Blood pressure systolic 102 mm Hg 06/21/20 24 Blood pressure diastolic 68 mm Hg 024 Height 70 in 06/21/2024 Weight 164 lbs 06/21/2024 BMI 23.53 kg/m2 06/21/2024 weight is down 3 pounds sin e 324 Encounters Encounter Location Date Provider Diagnosis Anthony eBe MD [address] [place] [phone] 06/21/2024 Anthony Bee Acquired hypothyroidism E03.9 Assessments Encounter Date Diagnosis (ICD Code) Assessment Notes Treatment Notes Treatment Clinical Notes Section Notes 06/21/2024 Acquired hypothyroidism (ICD-10 - E03.9) doing well on present meds, at goal Plan Of Treatment Medication Medication Name Sig Start Date Stop Date Notes Levoxyl 100 MCG take 1 tablet once daily Orally Once a day Treatment Notes Assessment Notes Acquired hypothyroidism doing well on pr esent meds, at goal Next Appt Details Follow Up: 6 Months, Reason: Provider Name:Anthony leach, 12/13/2024 09:30:00 AM, [address] [place] [address], [address], [place], [phone], Progress Notes * Tatiana DEVI MDOB: [birth year] (74 yo F)Acc No.[id number]:06/21/2024 Progress Notes Patient:?Tatiana Devi Provider:?Anthony Bee MD :1950???Age:74 Y???Sex:Female D ate:06/21/2024 Address:[address] [place] [address] , [phone] Subjective: * Chief Complaints: * ???6 MO F/U * HPI: ???Symptom(s):? patient is a 74 yo female here for 6 mnth follow up visit. * ROS:?General/Constitutional:?Denies?Chills.?Denies?Fatigue.?Denies?Fever.?Denies?Headache.?ENT:?Denies?Sore throat.?Endocrine:?Patient denies?any symptoms of hypo thyroid. is able to exercise and is doing fine.?Respiratory:?Denies?Cough.?Denies?Shortness of breath at rest.?Denies?Shortness of breath with exertion.?Gastrointestinal:?Denies?Diarrhea.?Denies?Nausea.? * Medical History:? * Surgical History:? * Hospitalization/Major Diagno stic Procedure:? * Medications:?TakingMulti For Her 50+ - Capsule as directed Orally Vitamin D-[address] 25 MCG (1000 UT) Tablet 2 tablets Orally Once a dayLevoxyl 100 MCG Tablet take 1 tablet once daily Orally Once a dayTaking Multi For Her 50+ - Capsule as directed Orally Taking Vitamin D-[address] 25 MCG (1000 UT) Tablet 2 tablets Orally Once a dayTaking Levoxyl 100 MCG Tablet take 1 tablet once daily Orally Once a dayNot-Taking/PRNAleve 220 MG Tablet 1 tablet with food or milk as needed Orally every 12 hrsMedication List reviewed and reconciled with the patientNot- Taking/PRN Aleve 220 MG Tablet 1 tablet with food or milk as needed Orally every 12 hrsMedication List reviewed and reconciled with the patient * Allergies:?penicillin: hives yes[Allergies Verified] Objective: * Vitals:?Ht: 70, Wt:164, BMI: 23.53, BP:102/68 weight is down 3 pounds since 12-12-23. * ???Past Orders: ???Lab:TSH reflex Free T4 (O rder Date - 06/14/2024) (Collection Date - 06/14/2024) ? Value Reference Range ?TSH reflex Free T4 1.69 0 .32-4.0 - uIU/mL * Examination: ???General Examination: ?GENERAL APPEARANCE:? alert, well hydrated, in no distress , female.?HEAD:? normocephalic.?NECK/THYROID:? no thyromegaly.?SKIN:? good turgor.?HEART:? regular rate and rhythm, no murmurs, rubs, gallops.?LUNGS:? no wheezes, rales, rhonchi, good air movement, clear to auscultation bilaterally.? Assessment: * Assessment: 1.?Acquired hypothyroidism - E03.9 (Primary)? Plan: * Treatment: * Procedure Codes:? * Preventive Medicine:? ??Immunizations:?Influenza?Have you had a flu shot since the most recent June 06??Yes.? * Follow Up:?6 Months * * Sign off status: Completed true * Provider:?Anthony Bee MD Date:?0 06/21/2024 Generated for Aminai ng/Evette/eTransmitting on:?12/06/2024 12:52 PM EST History and Physical Notes * HPI (History of Present Illness) Category Sub-Category Detail Notes Category Not es Symptom(s) patient is a 74 yo female here for 6 mnth follow up visit Examination Category Sub-Category Detail Notes Category Not es General Examination GENERAL APPEARANCE: alert, w ell hydrated, in no distress , female HEAD: normocephalic NECK/THYROID: no thyromegaly HEART: regular rate and rhy thm, no murmurs, rubs, gallops LUNGS: no wheezes, rales, r honchi, good air movement, clear to auscultation bilaterally SKIN: good turgor
== END 2024-12-06 07:31 | disposition home or self-care (01) ==
LOC: HO.LNP 07:30
PROVIDERS: Visit Provider Internal Medicine
DX: E03.9 Hypothyroidism, unspecified (principal); D72.820 Lymphocytosis (symptomatic)
CPT/HCPCS: 80053; 80061; 81001; 81003; 84443; 85025

== ENCOUNTER 2025-06-17 11:16 | Outpatient (REF) | payer MEDICARE, SELFPAY ==
--- OUTSIDE RECORDS SUMMARY | 2024-12-06 03:30 | XMS_ITS ---
Author Organization Anthony Bee MD Address [address] [place], [place] [id number] Care Team Providers Care Event Specialist Product Demonstrator Name Role Phone Anthony Bee Primary Care Provider Results Component Value Reference Range Notes Complete Blood Count Auto Di ff Reviewed date:12/06/2024 04:06:50 PM Interpretation: Performing Lab:[facility], [address] [place] [phone] Notes/Report: White Blood Count 3.5 4.8-10.8 X10*3/uL Red Blood Count 3.88 4.20-5.50 X10*6/uL Hemoglobin 12.2 12.0-16.0 g/dl Hematocrit 37.1 37.0-47.0 % Mean Corpuscular Volume 95.6 80.0-98.0 fL Mean Corpuscular Hemoglobin 31.4 27.0-33.0 pg Mean Corpuscular HGB Conc 32.9 31.0-35.0 g/dl Red Cell Distribution Width 12.8 11.0-16.0 % Platelet Count 198 160-400 X10*3/uL Mean Platelet Volume 11.6 9.4-12.3 fL Neutrophils Percent Auto 42.8 45-73 % Imm Gran Pct Auto 0.3 0.0-0.4 % Lymphocytes Percent Auto 41.1 20-40 % Monocytes Percent Auto 11.5 2-11 % Eosinophils Percent Auto 3.2 0-4 % Basophils Percent Auto 1.1 0-2 % NRBC Pct Auto 0.0 0.0-0.2 /100WBC Neutrophils Absolute Auto 1.5 2.0-8.3 x10*3/u L Imm Gran Abs Auto 0.01 0.00-0.03 X10*3/uL Lymphocytes Absolute Auto 1.4 1.2-4.9 X10*3/u L Monocytes Absolute Auto 0.4 0.1-1.2 X10*3/uL Eosinophils Absolute Auto 0.1 0.0-0.4 X10*3/u L Basophils Absolute Auto 0.0 0.0-0.2 X10*3/uL NRBC Abs Auto 0.000 0.0-0.012 X10*3/uL Comprehensive Christmas. Panel Fa Reviewed date:12/06/2024 04:05:38 PM Interpretation: Performing Lab:[facility], [address] [place] [phone] Notes/Report: Sodium 145 135-145 mmol/L Potassium 4.1 3.3-5.1 mmol/L Chloride 110 96-108 mmol/L Carbon Dioxide 26 22-29 mmol/L Anion Gap 13 12-20 Blood Urea Nitrogen 14 9-16 mg/dL Creatinine 0.74 0.5-1.4 mg/dL Estimated Glomerular Filt Rate > 60 Chronic Kidney Disease: Estimated GFR < 60 mL/min/1.73m2 Severe Kidney Disease: Estimated GFR < 15 mL/min/1.73m2 Glucose Fasting 91 60-99 mg/dL Calcium 9.6 8.4-10.2 mg/dL Bilirubin Total 0.6 0.0-1.0 mg/dL Aspartate Amino Transferase 25 5-31 U/L Alanine Aminotransferase 16 0-31 U/L Total Protein 7.4 6.5-8.0 g/dL Albumin Level 3.9 3.5-5.0 g/dL Alkaline Phosphatase 80 39-117 U/L Lipid Panel Reviewed date:12/06/2024 12:32:40 PM Interpretation: Performing Lab:[facility], [address] [place] [phone] Notes/Report: Triglycerides 61 <150 mg/dL Desirable Triglyceride: less than 150 mg/dL Borderline High Triglyceride 150-199 mg/dL High Triglyceride: 200-499 mg/dL Very High Triglyceride: greater than or equal to 5OO mg/dL Cholesterol 154 <200 mg/dL Desirable Cholesterol: less than 200 mg/dL Borderline High Cholesterol: 200-239 mg/dL High Cholesterol: greater than 239 mg/dL LDL Cholesterol Calculated 91 <100 mg/dL Desirable LDL: less than 100 mg/dL Near Optimal/Above Optimal LDL: 110-129 mg/dL Borderline High LDL: 130-159 mg/dL High LDL: 160-189 mg/dL Very High LDL: greater than or equal to 190 mg/dL HDL Cholesterol 51 >40 mg/dL Desirable HDL: greater than 40 mg/dL Note: This HDL assay may give artificially low results in patients with liver disease. TSH reflex Free T4 Reviewed date:12/06/2024 12:30:02 PM Interpretation: Performing Lab:[facility], [address] [place] [phone] Notes/Report: TSH reflex Free T4 1.27 0.32-4.0 uIU/mL UA ClnCatch+Micro w/rflx Cul t Reviewed date:12/06/2024 12:58:25 PM Interpretation: Performing Lab:[facility], [address] [place] [phone] Notes/Report: [id number] 0730 Urine, Clean Catch Color Urine Yellow Appearance Urine Clear PH 5.5 5.0-9.0 Glucose Urine UA Negative Negative mg/dL Urine Blood Negative Negative Specific [place] - Urine 1.015 1.005-1.025 Urine Protein Negative Neg-Trace mg/dL Urine Ketones Negative Negative mg/dL Nitrite Urine Negative Negative Leukocyte Esterase Urine Trace Negative RBC Urine 0-2 0-2 /HPF WBC Urine 0-5 0-5 /HPF Squamous Epithelial Cell Urine 0-2 0-2 /HPF Bacteria Urine None Seen None Seen Hyaline Casts Urine 0-2 0-2 /LPF REASON FOR VISIT FASTING LABS Encounters Encounter Location Date Provider Diagnosis Anthony Bee MD [address] [place], [place] [id number] 12/06/2024 Anthony Bee Acquired hypothyroidism E03.9 and Lymphocytosis D72.820 Assessments Encounter Date Diagnosis (ICD Code) Assessment Notes Treatment Notes Treatment Clinical Notes Section Notes 12/06/2024 Acquired hypothyroidism (ICD-10 - E03.9) 12/06/2024 Lymphocytosis (ICD-10 - D72.820) Plan Of Treatment Next Appt Details Provider Name:Anthony leach, 12/09/2025 07:30:00 AM, [address] [facility] [address], [address], [place], [place], [id number], Provider Name:Anthony leach, 12/16/2025 09:30:00 AM, [address] [facility] [address], [address], [place], [place], [id number], Progress Notes * Tatiana DEVI MDOB: [birth year] (75 yo F)Acc No.[id number]:12/06/2024 Progress Note Patient: Tatiana CHANEL Provider: Laverne Bee MD :1950 A ge:74 Y S ex:Female Date:12/06/2024 Address:[address] [place] [address] [id number] Subjective: * Chief Complaints: * 1 . FASTING LABS. * Medical History: Objective: * Vitals: Assessment: * Assessment: 1. A cquired hypothyroidism - E03.9 (Primary) 2 . L ymphocytosis - D72.820? Plan: * Treatment: 2. L ymphocytosis L AB: Complete Blood Count Auto Diff (Collection Date & Time - 12/06/2024 07:30 AM) L AB: Comprehensive Christmas. Panel Fast (Collection Date & Time - 12/06/2024 07:30 AM) L AB: Lipid Panel (Collection Date & Time - 12/06/2024 07:30 AM) L AB: TSH reflex Free T4 (Collection Date & Time - 12/06/2024 07:30 AM) L AB: UA ClnCatch+Micro w/rflx Cult (Collection Date & Time - 12/06/2024 07:30 AM) * Procedure Codes: 3 6415 VENIPUNCT, ROUTINE* * * The named appointment provid er may or may not be the originator of this progress note, and it is not deemed complete until electronically signed by the appointment provider. Sign off status: Pending * Provider: Laverne Bee MD Date: 0 12/06/2024 Generated for Oniel sharpe/Evette/Avis on: 0 06/17/2025 01:25 PM EDT
--- OUTSIDE RECORDS SUMMARY | 2024-12-11 05:42 | XMS_ITS ---
Author Organization Anthony Bee MD Address [address] [place], [place] [phone] Care Team Providers Care It Security Manager Name Role Phone Anthony Bee Primary Care Provider REASON FOR VISIT New Refill Request Encounters Encounter Location Date Provider Diagnosis Anthony Bee MD [address] [place] [phone] 12/11/2024 Anthony Bee Plan Of Treatment Next Appt Details Provider Name:Anthony leach, 12/09/2025 07:30:00 AM, [address] [place] [address], [address] [place] [address], [phone], Provider Name:Anthony leach, 12/16/2025 09:30:00 AM, [address] [place] [address], [address] [place] [address], [phone], Progress Notes * Tatiana DEVI MDOB: [birth year] (74 yo F)Acc No.[id number]:12/11/2024 Patient: Tatiana CHANEL :1950 A ge:74 Y S ex:Female Address:[address] [place] [address] * true * Date: Generated for Printi ng/Evette/Avis on: 0 06/17/2025 01:25 PM EDT
--- OUTSIDE RECORDS SUMMARY | 2024-12-13 05:30 | XMS_ITS ---
Author Organization Anthony Bee MD Address [address] [place], [place] [id number] Care Team Providers Care Vocational Rehabilitation Teacher Name Role Phone Anthony Bee Primary Care Provider Allergies Allergen (clinical drug ingredient) Drug/Non Drug Allergy documented on EMR Reaction Allergy Type Onset Date Status penicillin (uncoded) hives Allergy Active REASON FOR VISIT review labs Medications Medication SIG (Take, Route, Frequency, Duration) Notes Start Date End Date Status Aleve 220 MG 1 tablet with food o r milk as needed Orally every 12 hrs Not-Taking Multi For Her 50+ - as directed Orally Active Vitamin D-1000 Max St 25 MCG (1000 UT) 2 tablets Orally Once a day Active Levoxyl 100 MCG TAKE 1 TABLET ONCE D AILY for 90 Active Social History Tobacco Use: Social History Observation [...] Problem Status W/U Status Risk Notes Problem Neutropenia (524933264) Neutropenia (D70.9) Active confirmed Vital Signs Blood pressure systolic 108 mm Hg 12/14/19 25 Blood pressure diastolic 64 mm Hg 025 Height 70 in 12/13/2024 Weight 166 lbs 12/13/2024 BMI 23.82 kg/m2 12/13/2024 Encounters Encounter Location Date Provider Diagnosis Anthony Bee MD [address] [place] [address] [place] [phone] 12/13/2024 Anthony Bee Acquired hypothyroidism E03.9 ; Neutropenia D70.9 and Depression screening Z13.31 Assessments Encounter Date Diagnosis (ICD Code) Assessment Notes Treatment Notes Treatment Clinical Notes Section Notes 12/13/2024 Acquired hypothyroidism (ICD-10 - E03.9) labs to be done in 6 months , will contibue current regiment 12/13/2024 Neutropenia (ICD-10 - D70.9) will continue to monitor 12/13/2024 Depression screening (ICD-10 - Z13.31) negative screen Plan Of Treatment Medication Medication Name Sig Start Date Stop Date Notes Levoxyl 100 MCG TAKE 1 TABLET ONCE DAILY for 90 Treatment Notes Assessment Notes Acquired hypothyroidism labs to be done in 6 months , will contibue current regiment Neutropenia will continue to mon itor Depression screening negative screen Pending Test Test Name Order Date Complete Blood Count Auto Diff TSH reflex Free T4 12/13/2024 Next Appt Details Provider Name:Anthony leach, 12/09/2025 07:30:00 AM, [address] [place] [address], [address], [phone], Provider Name:Anthony leach, 12/16/2025 09:30:00 AM, [address] [place] [address], [address], [phone], Progress Notes * Tatiana DEVI MDOB: [birth year] (74 yo F)Acc No.[id number]:12/13/2024 Patient: Tatiana CHANEL Provider: Laverne Bee MD :1950 A ge:74 Y S ex:Female Date:12/13/2024 [facility] [place] [facility] [id number] Subjective: * Chief Complaints: * R eview labs * HPI: D epression Screening: PHQ-9 L ittle interest or pleasure in doing things N ot at all, F eeling down, depressed, or hopeless N ot at all, T rouble falling or staying asleep, or sleeping too much N ot at all, F eeling tired or having little energy N ot at all, P oor appetite or overeating N ot at all, F eeling bad about yourself or that you are a failure, or have let yourself or your family down N ot at all, T rouble concentrating on things, such as reading the newspaper or watching television N ot at all, M oving or speaking so slowly that other people could have noticed; or the opposite, being so fidgety or restless that you have been moving around a lot more than usual N ot at all, T houghts that you would be better off or of hurting yourself in some way N ot at all, T otal Score 0 . I nterpretation and Intervention D epression Screening Findings N egative, F ollow-Up for Depression : review of PHQ-9 found negative result, no follow-up needed. C ommunication Needs: Communication Needs D oes the patient have a hearing impairment N o, D oes the patient have a vision impairment? Y es, I f yes, what is the vision impairment? G lasses, D oes the patient have a cognition impairment? N o. F all Risk: History H ave you had any falls with injury in the past year? N o, H ave you had two or more falls in the past year? N o. S RADHA Questions: SDOH Questions I n the past year have you been worried about losing housing? N o, I n the past year have you or any family members you live with been unable to get any of the following when it was really needed? Check all that apply: N one. S ymptom(s): patient is a 74 yo female here for visit with review of recent labs and follow up of chronic issues. * ROS: G eneral/Constitutional: Change in appetite d enies. C hills d enies. F ever d enies. O phthalmologic: Blurred vision d enies. D ischarge d enies. P ain d enies. E NT: Decreased hearing d enies. S ore throat d enies.?Swollen glands d enies. E ndocrine: Cold intolerance d enies. E xcessive thirst d enies. H eat intolerance d enies. W eight loss d enies. R espiratory: Cough d enies. S hortness of breath at rest d enies. S hortness of breath with exertion d enies. W heezing d enies. C ardiovascular: Chest pain at rest d enies. C hest pain with exertion?denies. I rregular heartbeat d enies. S hortness of breath d enies. ? G astrointestinal: Abdominal pain d enies. C hange in bowel habits d enies. D iarrhea d enies. N ausea d enies. R ectal bleeding d enies. V omiting d enies . G enitourinary: Blood in urine d enies. D ifficulty urinating d enies. F requent urination d enies. U rinary incontinence D enies. M usculoskeletal: Painful joints d enies. W eakness d enies. ? S kin: Dry skin d enies. I tching d enies. D enies?Mole(s), changes in moles, new moles or any lesions of concern. D enies P hotosensitivity. R rishabh d enies. N eurologic: Dizziness d enies. F ainting d enies. H eadache?denies. * Medical History: * Surgical History: * Hospitalization/Major Diagno stic Procedure: * Family History: F ather: 74 yrs, brain abscess, esophageal cancer, diagnosed with Cancer. M other: 89 yrs, dementia mi. 2 brother(s) , 1 sister(s) . 2 son(s) . . Father- Cardiac Mother- Cardiac, Denies mental health/substance abuse family history, Denies mental health/substance abuse family history, No pertinent family medical history, Denies mental health/substance abuse family history. * Social History: T obacco Use: T obacco Use/Smoking P atient is a n onsmoker, A dditional Findings: Tobacco Non-User C urrent non-smoker, currently using no form of tobacco. D rugs/Alcohol: A lcohol Screen D id you have a drink containing alcohol in the past year? Y es, H ow often did you have a drink containing alcohol in the past year? M onthly or less (1 point), H ow many drinks did you have on a typical day when you were drinking in the past year? 1 or 2 drinks (0 point), H ow often did you have 6 or more drinks on one occasion in the past year? N ever (0 point), P oints 1 , I nterpretation N egative. M iscellaneous: C affeine: yes, frequency: tea, 1-2 cups per day. Children: yes. Community involvements: no. Exercise: yes, 3-4 times per week body sculpting walking 3 miles. Home smoke detector use: yes. Housing: owning. Living with: spouse. Marital status: . Occupation: retired. Pets: none. Travel outside of the [place]: no. * Medications: T akingMulti For Her 50+ - Capsule as directed Orally Vitamin D-[address] Max [address] 25 MCG (1000 UT) Tablet 2 tablets Orally Once a day Levoxyl 100 MCG Tablet TAKE 1 TABLET ONCE DAILY Taking Multi For Her 50+ - Capsule as directed Orally Taking Vitamin D-[address] 25 MCG (1000 UT) Tablet 2 tablets Orally Once a day Taking Levoxyl 100 MCG Tablet TAKE 1 TABLET ONCE DAILY Not-Taking/PRNAleve 220 MG Tablet 1 tablet with food or milk as needed Orally every 12 hrs Medication List reviewed and reconciled with the patientNot-Taking/PRN Aleve 220 MG Tablet 1 tablet with food or milk as needed Orally every 12 hrs Medication List reviewed and reconciled with the patient * Allergies: p enicillin: hivesyes[Allergies Verified] Objective: * Vitals: H t: 70, Wt: 166, BMI:23.82, BP:108/64, Wt-k.3. * P ast Orders: L ab:Complete Blood Count Auto Diff (Order Date - 12/06/2024) (Collection Date & Time - 12/06/2024 07:30 AM) Value Reference Range White Blood Count 3.5 L 4.8-10.8 - X10*3/uL Red Blood Count 3.88 L 4.20-5.50 - X10*6/uL Hemoglobin 12.2 12.0-16.0 - g/dl Hematocrit 37.1 37.0-47.0 - % Mean Corpuscular Volume 95.6 80.0-98.0 - fL Mean Corpuscular Hemoglobin 31.4 27.0-33.0 - pg Mean Corpuscular HGB Conc 32.9 31.0-35.0 - g/ dl Red Cell Distribution Width 12.8 11.0-16.0 - % Platelet Count 198 160-400 - X10*3/uL Mean Platelet Volume 11.6 9.4-12.3 - fL Neutrophils Percent Auto 42.8 L 45-73 - % Imm Gran Pct Auto 0.3 0.0-0.4 - % Lymphocytes Percent Auto 41.1 H 20-40 - % Monocytes Percent Auto 11.5 H 2-11 - % Eosinophils Percent Auto 3.2 0-4 - % Basophils Percent Auto 1.1 0-2 - % NRBC Pct Auto 0.0 0.0-0.2 - /100WBC Neutrophils Absolute Auto 1.5 L 2.0-8.3 - x10* 3/uL Imm Gran Abs Auto 0.01 0.00-0.03 - X10*3/uL Lymphocytes Absolute Auto 1.4 1.2-4.9 - X10* 3/uL Monocytes Absolute Auto 0.4 0.1-1.2 - X10*3/ uL Eosinophils Absolute Auto 0.1 0.0-0.4 - X10* 3/uL Basophils Absolute Auto 0.0 0.0-0.2 - X10*3/ uL NRBC Abs Auto 0.000 0.0-0.012 - X10*3/uL L ab:Comprehensive Reading. Panel Fast (Order Date - 12/06/2024) (Collection Date & Time - 12/06/2024 07:30 AM) Value Reference Range Sodium 145 135-145 - mmol/L Bilirubin Total 0.6 0.0-1.0 - mg/dL Aspartate Amino Transferase 25 5-31 - U/L Alanine Aminotransferase 16 0-31 - U/L Total Protein 7.4 6.5-8.0 - g/dL Albumin Level 3.9 3.5-5.0 - g/dL Alkaline Phosphatase 80 39-117 - U/L Potassium 4.1 3.3-5.1 - mmol/L Chloride 110 H 96-108 - mmol/L Carbon Dioxide 26 22-29 - mmol/L Anion Gap 13 12-20 - Blood Urea Nitrogen 14 9-16 - mg/dL Creatinine 0.74 0.5-1.4 - mg/dL Estimated Glomerular Filt Rate > 60 - Glucose Fasting 91 60-99 - mg/dL Calcium 9.6 8.4-10.2 - mg/dL L ab:Lipid Panel (Order Date - 12/06/2024) (Collection Date & Time - 12/06/2024 07:30 AM) Value Reference Range Triglycerides 61 <150 - mg/dL Cholesterol 154 <200 - mg/dL LDL Cholesterol Calculated 91 <100 - mg/dL HDL Cholesterol 51 >40 - mg/dL L ab:TSH reflex Free T4 (Order Date - 12/06/2024) (Collection Date & Time - 12/06/2024 07:30 AM) Value Reference Range TSH reflex Free T4 1.27 0.32-4.0 - uIU/mL L ab:UA ClnCatch+Micro w/rflx Cult (Order Date - 12/06/2024) (Collection Date & Time - 12/06/2024 07:30 AM) Value Reference Range Color Urine Yellow - Appearance Urine Clear - PH 5.5 5.0-9.0 - Glucose Urine UA Negative Negative - mg/dL Urine Blood Negative Negative - Specific [place] - Urine 1.015 1.005-1.025 - Urine Protein Negative Neg-Trace - mg/dL Urine Ketones Negative Negative - mg/dL Nitrite Urine Negative Negative - Leukocyte Esterase Urine Trace A Negative - RBC Urine 0-2 0-2 - /HPF WBC Urine 0-5 0-5 - /HPF Squamous Epithelial Cell Urine 0-2 0-2 - /HP F Bacteria Urine None Seen None Seen - Hyaline Casts Urine 0-2 0-2 - /LPF * Examination: G eneral Examination: GENERAL APPEARANCE: w ell developed, well nourished, in no acute distress. HEAD: n ormocephalic, atraumatic. EYES: p upils equal, round, reactive to light and accommodation, sclera non-icteric. EARS: n ormal. ORAL CAVITY: m ucosa moist. THROAT: c lear. NECK/THYROID: n stephanie supple, full range of motion, no cervical lymphadenopathy, no bruits. SKIN: w arm and dry, no suspicious lesions. HEART: r egular rate and rhythm, S1, S2 normal, no murmurs.? LUNGS: c lear to auscultation bilaterally. BREASTS: N o mass, no lump. ABDOMEN: s oft, nontender, nondistended, bowel sounds present, normal, no organomegaly , no masses palpable. RECTAL EXAM: d one by supplies packer. FEMALE GENITOURINARY: d one by supplies packer. EXTREMITIES: n o clubbing, cyanosis, or edema. NEUROLOGIC: n onfocal, motor strength normal upper and lower extremities, sensory exam intact. Assessment: * Assessment: 1. A cquired hypothyroidism - E03.9 (Primary) 2 . N eutropenia - D70.9 3 . D epression screening - Z13.31 Plan: * Treatment: 2. N eutropenia L AB: Complete Blood Count Auto Diff Notes: will continue to monitor 3. D epression screening Notes: negative screen * Procedure Codes: * * Sign off status: Completed true * Provider: Laverne Bee MD Date: 0 12/13/2024 Generated for Oniel sharpe/Evette/eTdebbyitting on: 0 06/17/2025 01:25 PM EDT History and Physical Notes * HPI (History of Present Illness) Category Sub-Category Detail Notes Category Not es Symptom(s) patient is a 74 yo female here for visit with review of recent labs and follow up of chronic issues. Depression Screening PHQ-9 Little inte rest or pleasure in doing things: Not at all Feeling down, depressed, or hopeless: No t at all Trouble falling or staying asleep, or sl eeping too much: Not at all Feeling tired or having little energy: N ot at all Poor appetite or overeating: Not at all Feeling bad about yourself o r that you are a failure, or have let yourself or your family down: Not at all Trouble concentrating on thi ngs, such as reading the newspaper or watching television: Not at all Moving or speaking so slowly that other people could have noticed; or the opposite, being so fidgety or restless that you have been moving around a lot more than usual: Not at all Thoughts that you would be b chetan off or of hurting yourself in some way: Not at all Total Score: 0 Interpretation and Intervention Depression Nicole herron Findings: Negative Follow-Up for Depression: : review of PH Q-9 found negative result, no follow-up needed SDOH Questions SDOH Questions In the past year have you been worried about losing housing?: No In the past year have you or any family members you live with been unable to get any of the following when it was really needed? Check all that apply:: None Fall Risk History Have you had any falls with injury i n the past year?: No Have you had two or more falls in the st year?: No Communication Needs Communication Needs Does the patient have a hearing impairment: No Does the patient have a vision impairmen t?: Yes If yes, what is the vision impairment?: Glasses Does the patient have a cognition impair ment?: No Examination Category Sub-Category Detail Notes Category Not es General Examination GENERAL APPEARANCE: well dev eloped, well nourished, in no acute distress HEAD: normocephalic, atrau matic EYES: pupils equal, round, reactive to light and accommodation, sclera non-icteric EARS: normal THROAT: clear NECK/THYROID: neck supple, full ra nge of motion, no cervical lymphadenopathy, no bruits HEART: regular rate and rhy thm, S1, S2 normal, no murmurs LUNGS: clear to auscultatio n bilaterally ABDOMEN: soft, nontender, non distended, bowel sounds present, normal, no organomegaly , no masses palpable NEUROLOGIC: nonfocal, motor stre ngth normal upper and lower extremities, sensory exam intact SKIN: warm and dry, no yoana picious lesions EXTREMITIES: no clubbing, cyanosi s, or edema BREASTS: No mass, no lump RECTAL EXAM: done by supplies packer FEMALE GENITOURINARY: done by supplies packer ORAL CAVITY: mucosa moist
--- OUTSIDE RECORDS SUMMARY | 2025-05-09 10:32 | XMS_ITS ---
Author Organization Anthony Bee MD Address [address] [place], [place] [id number] Care Team Providers Care Wad Compressor Operator Adjuster Name Role Phone Anthony Bee Primary Care Provider [phone] REASON FOR VISIT ER visit rec'd Encounters Encounter Location Date Provider Diagnosis Anthony Bee MD [address] [place] [phone] 05/09/2025 Anthony Bee Plan Of Treatment Next Appt Details Provider Name:Anthony leach, 12/09/2025 07:30:00 AM, [address] [place] [address], [address] [place] [address], [phone], Provider Name:Anthony leach, 12/16/2025 09:30:00 AM, [address] [place] [address], [address] [place] [address], [phone], Progress Notes * Tatiana DEVI MDOB: [birth year] (75 yo F)Acc No.[id number]:05/09/2025 Patient: Tatiana CHANEL :1950 A ge:75 Y S ex:Female Address:[address] [place] [address] * true * Date: Generated for Oniel sharpe/Evette/Avis on: 0 06/17/2025 01:24 PM EDT
--- OUTSIDE RECORDS SUMMARY | 2025-06-17 03:45 | XMS_ITS ---
Author Organization Anthony Bee MD Address [address] [place], [place] [phone] Care Team Providers Care Tip Tester Name Role Phone Anthony Bee Primary Care Provider Results Component Value Reference Range Notes Complete Blood Count Auto Di ff (Not yet reviewed by provider) Interpretation: Performing Lab:[facility], [address] [place] [phone] Notes/Report: White Blood Count 3.8 4.8-10.8 X10*3/uL Red Blood Count 3.94 4.20-5.50 X10*6/uL Hemoglobin 12.0 12.0-16.0 g/dl Hematocrit 37.3 37.0-47.0 % Mean Corpuscular Volume 94.7 80.0-98.0 fL Mean Corpuscular Hemoglobin 30.5 27.0-33.0 pg Mean Corpuscular HGB Conc 32.2 31.0-35.0 g/dl Red Cell Distribution Width 13.7 11.0-16.0 % Platelet Count 219 160-400 X10*3/uL Mean Platelet Volume 10.7 9.4-12.3 fL Neutrophils Percent Auto 48.6 45-73 % Imm Gran Pct Auto 0.3 0.0-0.4 % Lymphocytes Percent Auto 36.1 20-40 % Monocytes Percent Auto 10.3 2-11 % Eosinophils Percent Auto 2.9 0-4 % Basophils Percent Auto 1.8 0-2 % NRBC Pct Auto 0.0 0.0-0.2 /100WBC Neutrophils Absolute Auto 1.8 2.0-8.3 x10*3/u L Imm Gran Abs Auto 0.01 0.00-0.03 X10*3/uL Lymphocytes Absolute Auto 1.4 1.2-4.9 X10*3/u L Monocytes Absolute Auto 0.4 0.1-1.2 X10*3/uL Eosinophils Absolute Auto 0.1 0.0-0.4 X10*3/u L Basophils Absolute Auto 0.1 0.0-0.2 X10*3/uL NRBC Abs Auto 0.000 0.0-0.012 X10*3/uL TSH reflex Free T4 Reviewed date:06/17/2025 12:50:00 PM Interpretation: Performing Lab:[facility], [address] [place] [phone] Notes/Report: TSH reflex Free T4 0.83 0.32-4.0 uIU/mL REASON FOR VISIT CBC TSH Immunizations Vaccine Route Administration Date Status Comme nts Influenza High Dose IM Intramuscular 06/17/2025 Administer ed Encounters Encounter Location Date Provider Diagnosis Anthony Bee MD [address] [place] [address] [phone] 06/17/2025 Anthony Bee Acquired hypothyroidism E03.9 ; Neutropenia D70.9 and Encounter for administration of vaccine Z23 Assessments Encounter Date Diagnosis (ICD Code) Assessment Notes Treatment Notes Treatment Clinical Notes Section Notes 06/17/2025 Acquired hypothyroidism (ICD-10 - E03.9) 06/17/2025 Neutropenia (ICD-10 - D70.9) 06/17/2025 Encounter for administration of vaccine (ICD-10 - Z23) Plan Of Treatment Pending Test Test Name Order Date Complete Blood Count Auto Diff Next Appt Details Provider Name:Anthony leach, 12/09/2025 07:30:00 AM, [address] [place] [address], [address], [place], [place], [phone], Provider Name:Anthony leach, 12/16/2025 09:30:00 AM, [address] [place] [address], [address], [place], [place], [phone], Progress Notes * Tatiana DEVI MDOB: [birth year] (75 yo F)Acc No.[id number]:06/17/2025 Progress Note Patient: Tatiana CHANEL Provider: Laverne Bee MD :1950 A ge:75 Y S ex:Female Date:06/17/2025 Address:[address] [place] [address] , [place] , [id number] Subjective: * Chief Complaints: * 1 . CBC TSH. * Medical History: Objective: * Vitals: Assessment: * Assessment: 1. A cquired hypothyroidism - E03.9 (Primary) 2 . N eutropenia - D70.9 3 . E ncounter for administration of vaccine - Z23 Plan: * Treatment: 2. N eutropenia L AB: Complete Blood Count Auto Diff (Collection Date & Time - 06/17/2025 07:45 AM) L AB: TSH reflex Free T4 (Collection Date & Time - 06/17/2025 07:45 AM) * Immunizations: Influenza High Dose : 0.5 mL (Dose No:1) (Route: Intramuscular) given by Tatiana Genao , Office Staff on Left Deltoid * Procedure Codes: 3 6415 VENIPUNCT, ROUTINE*, 06542 FLU VACC PRSV FREE INC ANTIG, G0008 ADMN FLU VAC NO FEE SCHED SAME DAY * * The named appointment provid er may or may not be the originator of this progress note, and it is not deemed complete until electronically signed by the appointment provider. Sign off status: Pending * Provider: Laverne Bee MD Date: 06/17/2025 Generated for Oniel sharpe/Evette/Escobaritting on: 06/17/2025 01:26 PM EDT
[2025-06-17 11:19] LABS: MANUAL DIFF FLAG NO
[2025-06-17 11:39] LABS: Hematocrit 37.3 % (37.0-47.0); Hemoglobin 12.0 g/dl (12.0-16.0); Imm Gran Abs Auto 0.01 X10*3/uL (0.00-0.03); Imm Gran Pct Auto 0.3 % (0.0-0.4); Lymphocytes Absolute Auto 1.4 X10*3/uL (1.2-4.9); Mean Corpuscular HGB Conc 32.2 g/dl (31.0-35.0); Mean Corpuscular Hemoglobin 30.5 pg (27.0-33.0); Mean Corpuscular Volume 94.7 fL (80.0-98.0); NRBC Abs Auto 0.000 X10*3/uL (0.0-0.012); NRBC Pct Auto 0.0 /100WBC (0.0-0.2); Platelet Count 219 X10*3/uL (160-400); Red Blood Count 3.94 X10*6/uL (4.20-5.50); White Blood Count 3.8 X10*3/uL (4.8-10.8)
--- OUTSIDE RECORDS SUMMARY | 2025-06-17 13:24 | XMS_ITS | Encounter Summary ---
Author Organization [facility] Address [address] [place] [address] Phone Care Team Providers Care Fabric Finisher Name Role Phone Rocío Malik MD Unavailable [phone] Anthony Bee MD Unavailable [phone] Anthony Bee MD Primary Care Provider Encounter Details Date Type Department Care Team (Late st Contact Info) Description 05/28/2022 Procedure Pass [facility], [address] [address] Social History Tobacco Use Types Packs/Day Years Used Date Smoking Tobacco: Never Smokeless Tobacco: Never Alcohol Use Standard Drinks/Week Comments Not Currently 0 (1 standard drink = 0.6 oz pur e alcohol) Socially Comments No Sex and Gender Information Value Date Recorded Sex Assigned at Female 05/05/2020 3:14 PM EDT Legal Sex Female 10:00 PM EDT Gender Identity Female 05/05/2020 3:14 PM EDT Sexual Orientation Not on file documented as of this encounter Plan of Treatment Not on file documented as of this encounter Visit Diagnoses Not on filedocumented in this encounter Care Teams Fabric Finisher Relationship Specialty Start Date End Date Anthony Bee MD [address] [place] [address] [place] [address] PCP - General 10/09/17 Rocío Malik MD [address] [place] [address], [address] [place] [address] [email or web address] LMR Provider 07/23/17 Anthony Bee MD [address] [place] [address] [place] [address] Historical LMR Provider 07/23/17 documented as of this encounter Additional Source Comments The information contained in this document represents components of the legal health record. It is not the complete legal health record.[facility]
--- OUTSIDE RECORDS SUMMARY | 2025-06-17 13:24 | XMS_ITS | Encounter Summary ---
Author Organization [facility] Address [address] [place] [address] Phone Care Team Providers Care Chemical Tank Worker Name Role Phone Rocío Malik MD Unavailable Anthony Bee MD Unavailable [phone] Anthony Bee MD Primary Care Provider Encounter Details Date Type Department Care Team (Late st Contact Info) Description 05/28/2022 Transcribe Orders Virtual Department [address] [place] [address] Anthony Bee MD [address] [place] [address] [place] [address] Breast screening (Primary Dx) Social History Tobacco Use Types Packs/Day Years [...] on file documented as of this encounter Results * BI MAMMOGRAM SCREENING WITH TOMOSYNTHESIS WITH CAD (BILATERAL) (08/23/2022 8:39 AM EST) Anatomical Region Laterality Modality Breast Left, Breast Right, Breast Bilateral Bila teral Mammography 08/25/2022 11:4 6 AM EST Impressions 08/25/2022 11:49 AM EST BILATERAL BREASTS: Negative, no specific mammographic evidence of malignancy. Normal interval follow-up is recommended in 12 months. BI-RADS: BI-RADS CATEGORY: 1 - Negative. DENSITY: There are scattered fibroglandular densities. Narrative 08/25/2022 11:49 AM EST STUDY: BI MAMMOGRAM SCREENING WITH TOMOSYNTHESIS WITH CAD (BILATERAL) TECHNIQUE: Bilateral full-field digital screening mammography is obtained and read in conjunction with computer-aided detection. Tomosynthesis as well as 2-D C view imaging were obtained. COMPARISON: Comparison made to multiple prior, most recent August 20, 2021, and most remote March 30, 2015. BREAST COMPOSITION: There are scattered areas of fibroglandular density BILATERAL BREASTS: No significant masses, suspicious calcifications or other abnormalities are seen in either breast. Procedure Note Osvaldo Guevara MD - 08/25/2022 STUDY: BI MAMMOGRAM SCREENING WITH TOMOSYNTHESIS WITH CAD (BILATERAL) TECHNIQUE: Bilateral full-field digital screening mammography is obtainedand read in conjunction with computer-aided detection. Tomosynthesis aswell as 2-D C view imaging were obtained. COMPARISON: Comparison made to multiple prior, most recent August, and most remote March 30, 2015. BREAST COMPOSITION: There are scattered areas of fibroglandulardensity BILATERAL BREASTS: No significant masses, suspicious calcifications orother abnormalities are seen in either breast. IMPRESSION: BILATERAL BREASTS: Negative, no specific mammographic evidence ofmalignancy. Normal interval follow-up is recommended in 12 months. BI-RADS: BI-RADS CATEGORY: 1 - Negative. DENSITY: There are scattered fibroglandular densities. us Rocío Malik MD IMG MG EXAMS Final Result documented in this encounter Visit Diagnoses Diagnosis Breast screening- Primary Breast screening, unspecified Breast screening Breast screening, unspecified documented in this encounter Care Teams Chemical Tank Worker Relationship Specialty Start Date End Date Anthony Bee MD [address] [place] [address] [place] [address] PCP - General 10/09/17 Rocío Malik MD [address] [place] [address], [address] [place] [address] [email or web address] Historical LMR Provider 07/23/17 Anthony Bee MD [address] [place] [address] [place] [address] Historical LMR Provider 07/23/17 documented as of this encounter Additional Source Comments The information contained in this document represents components of the legal health record. It is not the complete legal health record.[facility]
--- OUTSIDE RECORDS SUMMARY | 2025-06-17 13:25 | XMS_ITS | Encounter Summary ---
Author Organization [facility] Address [address] [place] [address] Phone Care Team Providers Care English Drawer Name Role Phone Zhang Yana Rico NP Unavailable [phone] Rocío Malik MD Unavailable [phone] Anthony Bee MD Unavailable [phone] Ada Suárez MD Unavailable [phone] Anthony Bee MD Primary Care Provider Encounter Details Date Type Department Care Team (Late st Contact Info) Description 04/10/2021 Ancillary Orders Virtual Department [address] [place] [address] Anthony Bee MD [address] [place] [address] [facility] [place] [address] Breast screening Social History Tobacco Use Types Packs/Day Years [...] MAMMOGRAM SCREENING WITH TOMOSYNTHESIS WITH CAD (BILATERAL) (08/20/2021 12:52 PM EST) Anatomical Region Laterality Modality Breast Left, Breast Right, Breast Bilateral Bila teral Mammography 08/20/2021 5:41 PM EST Impressions 08/20/2021 5:44 PM EST No mammographic signs of malignancy. Annual screening is recommended. BI-RADS CATEGORY: 1 - Negative. DENSITY: There are scattered fibroglandular densities. Narrative 08/20/2021 5:44 PM EST Bilateral mammography is performed in conjunction with computed aided detection. 3-D tomography along with 2-D C view imaging was also performed. Comparison made to previous dated as far back as 03/30/2015 and as recent as 07/07/2020. No suspicious masses, areas of architectural distortion or suspicious microcalcifications. Procedure Note Florencio Carbajal MD - 08/20/2021 Bilateral mammography is performed in conjunction with computed aideddetection. 3-D tomography along with 2-D C view imaging was alsoperformed. Comparison made to previous dated as far back as 03/30/2015 andas recent as 07/07/2020. No suspicious masses, areas of architectural distortion or suspiciousmicrocalcifications. IMPRESSION: No mammographic signs of malignancy. Annual screening is recommended. BI-RADS CATEGORY: 1 - Negative. DENSITY: There are scattered fibroglandular densities. us Anthony Bee MD IMG MG EXAMS Final R esult documented in this encounter Visit Diagnoses Diagnosis Breast screening Breast screening, unspecified documented in this encounter Care Teams English Drawer Relationship Specialty Start Date End Date Anthony Bee MD [address] [place] [address] [place] [address] PCP - General 10/09/17 Yana Holcomb NP [address] [place] [id number] [email or web address] Historical LMR Provider 07/23/17 10/13/21 Rocío Malik MD [address] [place] [address] [email or web address] Historical LMR Provider 07/23/17 Anthony Bee MD [address] [place] [address] Historical LMR Provider 07/23/17 Ada Suárez MD [address] [place] [address] [email or web address] Historical LMR Provider 07/23/17 10/13/21 documented as of this encounter Additional Source Comments The information contained in this document represents components of the legal health record. It is not the complete legal health record.[facility]
--- OUTSIDE RECORDS SUMMARY | 2025-06-17 13:25 | XMS_ITS | Encounter Summary ---
Author Organization [facility] Address [address] [place] [address] Phone Care Team Providers Care Plumbing Assembler Name Role Phone Rocío Malik MD Unavailable [phone] Anthony Bee MD Unavailable [phone] Anthony Bee MD Primary Care Provider Encounter Details Date Type Department Care Team (Late st Contact Info) Description 05/26/2023 Procedure [facility] [address] [place] [address] Social History Tobacco Use Types Packs/Day Years Used Date Smoking Tobacco: Never Smokeless Tobacco: Never Alcohol Use Standard Drinks/Week Comments Not Currently 0 (1 standard drink = 0.6 oz pur e alcohol) Socially Education Answer Date Recorded Are you interested in more education? Not on priscilla e 01/31/2023 Are you concerned about learning? Not on file 01/31/2023 No 01/31/2023 No 01/31/2023 Digital Access Answer Date Recorded No 03/01/2023 No 03/01/2023 Reliable internet access at home? Not on file 03/01/2023 Device with a working camera? Not on file Comments No Sex and Gender Information Value Date Recorded Sex Assigned at Female 05/05/2020 3:14 PM EDT Legal Sex Female 10:00 PM EDT Gender Identity Female 05/05/2020 3:14 PM EDT Sexual Orientation Not on file documented as of this encounter Plan of Treatment Not on file documented as of this encounter Visit Diagnoses Not on filedocumented in this encounter Care Teams Plumbing Assembler Relationship Specialty Start Date End Date Anthony Bee MD [address] [place] [address] [place] [address] PCP - General 10/09/17 Rocío Malik MD [address] [place] [address], [address] [place] [address] [email or web address] Historical LMR Provider 07/23/17 Anthony Bee MD [address] [place] [address] [place] [address] Historical LMR Provider 07/23/17 documented as of this encounter Additional Source Comments The information contained in this document represents components of the legal health record. It is not the complete legal health record.[facility]
--- OUTSIDE RECORDS SUMMARY | 2025-06-17 13:25 | XMS_ITS ---
Author Name Baljit Viera Address Unknown Organization [facility] Care Team Providers Care Clinical Program Director Name Role Phone Unavailable Primary Care Physician Unavailab le History Of Present Illness This is a 75 year old female who is an established patient who is being seen for an evaluation of skin lesions.Location: body throughoutDuration: yearsPertinent History: basal cell skin cancer and family history of non-melanoma skin cancerPertinent Negatives: no history of melanoma and no family history of melanomaAdditional Visit Reasons: education and counseling about sun exposure, evaluation for suspicious growths, and evaluation of current neviAdditional History: Patient denies new concerns. Allergies, Adverse Reactions, Alerts Substance RxNorm Reaction(s) Severity Status Start Da te Penicillins Hives unspecified active 1970 Medications Medication Generic Name RxNorm Strength Strength Unit Route Dose Dose Form Frequency Date Started Date Ended Status Indication Sig betamethaso ne, augmented betameth asone, augmente d 115515 0.05 % Topica l cream 07/04/20 20 suspend ed Appl y to lesi on on righ t hand BID x 2 week s on, 1 week off; repe at PRN betamethaso ne, augmented betameth asone, augmente d 890689 0.05 % Topica l cream 12/20/19 22 suspend ed Appl y to lesi on on righ t hand BID x 2 week s on, 1 week off; repe at PRN betamethaso ne, augmented betameth asone, augmente d 121479 0.05 % Topica l apply thin layer cream PRN 02/27/20 24 active Appl y to lesi on on righ t hand BID x 2 week s on, 1 week off; repe at PRN clobetasol clobetas ol 001046 0.05 % Topica l cream BID 07/04/20 20 suspend ed Appl y twic e israel y to affe cted area righ t hand x 2 week s on, 1 week off; repe at PRN. levothyroxi ne levothyr oxine 100 mcg Oral 1 capsu le QD active Levoxyl NULL 06/30/20 17 suspend ed Problems Problem Code Type Status Date of Diagnosis Date of Resolution Actinic keratosis (disorder) (S NOMED) Diagnosis active 06/13/2025 Granuloma annulare (disorder) 49816543(SN OMED) Diagnosis active 06/13/2025 Family history of malignant neoplasm (situation) 121401092(S NOMED) Diagnosis active 06/13/2025 History of neoplasm (situation) 967677111(S NOMED) Diagnosis active 06/13/2025 Melanocytic nevus of trunk (disorder) 285016151(S NOMED) Diagnosis active 06/13/2025 Benign neoplasm of skin of left lower limb (disorder) 41443976373 49319(SNOME D) Diagnosis active 06/13/2025 Seborrheic keratosis (disorder) 950012102(S NOMED) Diagnosis active 06/13/2025 Hemangioma of skin and subcutaneous tissue (disorder) 191459627(S NOMED) Diagnosis active 06/13/2025 Disorder of pigmentation (disorder) 407950828(S NOMED) Diagnosis active 06/13/2025 Patient encounter status (finding) 456068981(S NOMED) Diagnosis active 06/13/2025 History of neoplasm (situation) 301453923(S NOMED) Diagnosis active 08/06/2024 Granuloma annulare (disorder) 80826685(SN OMED) Diagnosis active 08/06/2024 Melanocytic nevus of trunk (disorder) 061712449(S NOMED) Diagnosis active 08/06/2024 Benign neoplasm of skin of left lower limb (disorder) 70641578399 08433(SNOME D) Diagnosis active 08/06/2024 Seborrheic keratosis (disorder) 705813573(S NOMED) Diagnosis active 08/06/2024 Hemangioma of skin and subcutaneous tissue (disorder) 193768244(S NOMED) Diagnosis active 08/06/2024 Disorder of pigmentation (disorder) 329746028(S NOMED) Diagnosis active 08/06/2024 Patient encounter status (finding) 680511175(S NOMED) Diagnosis active 08/06/2024 History of neoplasm (situation) 082858031(S NOMED) Diagnosis active 02/27/2024 Granuloma annulare (disorder) 36421365(SN OMED) Diagnosis active 02/27/2024 Onychomycosis caused by dermatophyte (disorder) 868170846(S NOMED) Diagnosis active 02/27/2024 Melanocytic nevus of trunk (disorder) 094065123(S NOMED) Diagnosis active 02/27/2024 Benign neoplasm of skin of left lower limb (disorder) 40561438695 32856(SNOME D) Diagnosis active 02/27/2024 Seborrheic keratosis (disorder) 033067899(S NOMED) Diagnosis active 02/27/2024 Hemangioma of skin and subcutaneous tissue (disorder) 137849676(S NOMED) Diagnosis active 02/27/2024 Disorder of pigmentation (disorder) 642072714(S NOMED) Diagnosis active 02/27/2024 Basal cell carcinoma of lower extremity (disorder) 647982026(S NOMED) Diagnosis active 10/31/2023 Actinic keratosis (disorder) (S NOMED) Diagnosis active 10/31/2023 Neoplasm of uncertain behavior of skin (disorder) 65259570(SN OMED) Diagnosis active 08/18/2023 Actinic keratosis (disorder) (S NOMED) Diagnosis active 08/18/2023 Onychomycosis caused by dermatophyte (disorder) 245324730(S NOMED) Diagnosis active 08/18/2023 Melanocytic nevus of trunk (disorder) 211657979(S NOMED) Diagnosis active 08/18/2023 Benign neoplasm of skin of left lower limb (disorder) 00964803021 20990(SNOME D) Diagnosis active 08/18/2023 Seborrheic keratosis (disorder) 197825506(S NOMED) Diagnosis active 08/18/2023 Hemangioma of skin and subcutaneous tissue (disorder) 869472921(S NOMED) Diagnosis active 08/18/2023 Disorder of pigmentation (disorder) 117044445(S NOMED) Diagnosis active 08/18/2023 Actinic keratosis (disorder) (S NOMED) Diagnosis active 08/09/2022 Onychomycosis caused by dermatophyte (disorder) 022730017(S NOMED) Diagnosis active 08/09/2022 Melanocytic nevus (disorder) 368340197(S NOMED) Diagnosis active 08/09/2022 Benign neoplasm of skin of left lower limb (disorder) 66633525327 08393(SNOME D) Diagnosis active 08/09/2022 Seborrheic keratosis (disorder) 569728448(S NOMED) Diagnosis active 08/09/2022 Hemangioma of skin and subcutaneous tissue (disorder) 566917991(S NOMED) Diagnosis active 08/09/2022 Disorder of pigmentation (disorder) 710291383(S NOMED) Diagnosis active 08/09/2022 Actinic keratosis (disorder) 655350363(S NOMED) Diagnosis active 07/12/2021 Melanocytic nevus (disorder) 650877964(S NOMED) Diagnosis active 07/12/2021 Seborrheic keratosis (disorder) 054586546(S NOMED) Diagnosis active 07/12/2021 Hemangioma of skin and subcutaneous tissue (disorder) 148808264(S NOMED) Diagnosis active 07/12/2021 Disorder of pigmentation (disorder) 982096091(S NOMED) Diagnosis active 07/12/2021 Granuloma annulare (disorder) 57614189(SN OMED) Diagnosis active 07/12/2021 Granuloma annulare L92.0(ICD-1 0) Diagnosis active 07/04/2020 Melanocytic nevi, unspecified D22.9(ICD-1 0) Diagnosis active 07/04/2020 Other seborrheic keratosis L82.1(ICD-1 0) Diagnosis active 07/04/2020 Hemangioma of skin and subcutaneous tissue D18.01(ICD- 10) Diagnosis active 07/04/2020 Other melanin hyperpigmentation L81.4(ICD-1 0) Diagnosis active 07/04/2020 Other specified health status Z78.9(ICD-1 0) Diagnosis active 06/30/2017 Personal history of other drug therapy Z92.29(ICD- 10) Diagnosis active 06/30/2017 Melanocytic nevus of trunk (disorder) 821377529(S NOMED) Diagnosis active 06/30/2017 Asthma (disorder) 346319312(S NOMED) Problem active History of clinical finding in subject (situation) 861928889(S NOMED) Problem active Results No data Encounters Service provided at [facility], [address] [place] [address], [address], [place], [place] [id number]. Office phonenumber is [phone]. Office fax number is [phone]. Encounter Diagnosis Location Date / Time Type Actinic Keratoses (L57.0)Gra nuloma Annulare (L92.0)Family history of non-melanoma skin cancer (Z80.8)History of Superficial Basal Cell Carcinoma (Z86.007)Benign Appearing Nevi (D22.5)Dermatofibroma (D23.72)Seborrheic Keratoses (L82.1)Ojeda Angiomas (D18.01)Lentigines (L81.4)Skin Education (Z71.89) [facility] 06/13/2025 17:30:00 [place] [address] Reason For Referral No data Procedures Procedure Date Documentation of current medications (pr ocedure) 06/13/2025 12:00 am UTC Destruction of premalignant skin lesion (procedure) 06/13/2025 12:00 am UTC Tumor destruction (procedure) 10/31/2023 12:00 am UTC Destruction of premalignant skin lesion (procedure) 10/31/2023 12:00 am UTC Shave biopsy (procedure) 08/18/2023 12:0 0 am UTC Cryotherapy of skin lesion with liquid n itrogen (procedure) 08/18/2023 12:00 am UTC Cryotherapy of skin lesion with liquid n itrogen (procedure) 08/09/2022 12:00 am UTC Cryotherapy of skin lesion with liquid n itrogen (procedure) 07/12/2021 12:00 am UTC Documentation of past medical history (p rocedure) Review Of Systems Provider reviewed on Jun 13, 2025.A focused review of systems was performed including Hematologic /Lymphatic and Integumentary.No Problems With Healing, No Problems With Scarring (hypertrophic Or Keloid), And No Problems With Bleeding. Assessment 1.Actinic Keratoses, Status: Inadequately ControlledCounselingLiquid Nitrogen: right forehead; right forehead; nose; nose; left lip; right lip; left cheek; Number of freeze-thaw Cycles - 2 freeze-thaw cycles; Duration of freeze thaw- cycle (seconds) - 5; Application Tool - Liquid Nitrogen Sprayer.2.Granuloma Annulare, Status: StablePrescription: betamethasone, augmented 0.05 % topical cream TPAdditional NotesCounseling3.Family history of non-melanoma skin cancer - Mother, Father, Sister, Brotherx2 ,BCC and SCC.Counseling4.History of Superficial Basal Cell Carcinoma - 08/27/23Right Lateral Posterior Ankle, Biopsy by Shave MethodBasal cell carcinoma, superficial type.Tx with ED&C on 10/31/23 .Counseling5.Benign Appearing Nevi, Status: UnchangedCounselingMonitoring6.Dermatofibroma, Status: U nchangedCounseling7.Seborrheic Keratoses, Status: UnchangedCounseling8.Ojeda Angiomas, Status: UnchangedCounseling9.Lentigines, Status: VeztwcohtJqfwpylovb42.Skin EducationCounselingSunscreen Recommendations Plan of Care Future visit for 11/28/2025 - Follow up in 6 months for: Skin Check, Skin Cancer Surveillance - 15 minutes. Other Instructions: CSE. Other Instructions: CSE. Code Detail Instructions [id number] betamethasone, augme nted 0.05 % topical cream Apply a thin layer to pink lesions on the hands BID 2 weeks on, 1 week off. Repeat PRN 007504 betamethasone, augme nted 0.05 % topical cream Apply to pink spots on right hand BID x 2 weeks on, 1 week off; repeat PRN [id number] betamethasone, augme nted 0.05 % topical cream Apply to lesion on right hand BID x 2 weeks on, 1 week off; repeat PRN [id number] betamethasone, augme nted 0.05 % topical cream Apply to lesion on right hand BID x 2 weeks on, 1 week off; repeat PRN [id number] betamethasone, augme nted 0.05 % topical cream Apply to lesion on right hand BID x 2 weeks on, 1 week off; repeat PRN 217828 betamethasone, augme nted 0.05 % topical cream Apply to lesion on right hand BID x 2 weeks on, 1 week off; repeat PRN 771315 clobetasol 0.05 % topical cream Apply twice daily to affected area right hand x 2 weeks on, 1 week off; repeat PRN. Instructions * I counseled the patient regarding the following:Skin Care: Sun protective clothing and broad spectrum sunscreen can prevent the formation of Actinic Keratoses. AKs can resolve with cryotherapy, photodynamic therapy, imiquimod, topical 5-FU.Expectations: Actinic Keratoses are precancerous proliferations that occur within sun damaged skin. If untreated, a small subset of AKs can develop into Squamous Cell Carcinoma.Contact Office if: If AKs fail to resolve despite treatment, or if you develop a side effect from therapy, such as unbearable crusting, scabbing, redness and tenderness.I recommendedthe following: Broad Spectrum Sunscreen SPF 30+ * I counseled the patient regarding the following:Skin care: Treatments with topical steroids, intralesional steroids can be helpful.Expectations: Granuloma Annulare is an inflammatory granulomatous process that is usually self-limited. Patient aware that cause is unknown.Contact office if: Granuloma Annulare fails to improve despite several months of treatment. * I counseled the patient regarding the following:Skin Care: Patients with a family history of non-melanoma should wear broad spectrum sunscreen and sun protective clothing.Expectations: Patients with a family history of non- melanoma skin cancer should undergo monthly self-skin checks to monitor for a ny new growths that fail to heal, enlarge or become painful.Contact Office if: Patient notices any new or changing lesions. * I counseled the patient regarding the following:Skin Care: Patients with a history of non-melanoma skin cancer should wear broad spectrum sunscreen and sun protective clothing.Expectations: Scars from excisional sites of non- melanoma skin cancers should be monitored for any recurrences.Contact Office if: If the patient notices discoloration or a bump arising from a previously stable scar or any new lesions that are not healing.I recommended the following: Broad Spectrum Sunscreen SPF 30+ * I counseled the patient regarding the following:Contact Office if: Any moles change in size, shape or color; itch, burn or bleed.All nevi evaluated today appear benign. We discussed the ABCDE's of abnormal moles. Monthly self-skin exams recommended to monitor for any changes. * I counseled the patient regarding the following:Skin care: Dermatofibromas are benign. They should be surgically removed if symptomatic or if they grow.Expectations: Dermatofibromas are benign scar-like nodules, most often located on the lower extremities. They may removed surgically if bothersome. Notify office if enlarging. * I counseled the patient regarding the following:Skin Care: Seborrheic Keratoses are benign. No treatment is necessary.Reassurance provided. These are benign warty growths. They are hereditary and most patients get more of them as they age. No treatment is necessary unless they are symptomatic. * I counseled the patient regarding the following:Skin Care: Ojeda Angiomas can resolve with lasers or electrodesiccation.Expectations: Ojeda Angiomas are benign vascular growths. No treatment is necessary.Alert office if lesion begins to grow rapidly, becomes friable, painful, sensation changes. * I counseled the patient regarding the following:Skin Care: Lentigines can be prevented or improved by aggressive photoprotection with broad spectrum sun screen. Cosmetic treatments are available if desired.Expectations: Lentigines are benign pigmented lesions that occur on sun-exposed and sun-damaged skin.Lentigines can be prevented or improved by aggressive photoprotection with broad spectrum sun screen of SPF 30-50. They are benign. Cosmetic treatments are available if desired.I recommended the following: Broad Spectrum Sunscreen SPF 30+ * I counseled the patient regarding the following:Sun screen (SPF 30 or greater) should be applied during peak UV exposure (between 10am and 2pm) and reapplied after exercise or swimming, and at least every 2 hours.Monitor skin regularly for changes and call for reevaluation of any areas that fail toheal, bleed, or stand out among the rest.I recommended the following: Broad Spectrum Sunscreen SPF 30+Self-Skin Exams Social History Code Activity Start Date End Date [id number] ([facility]) Never smoker Sex female Sexual orientation Unspecified Gender identity Unspecified Vital Signs No data
--- OUTSIDE RECORDS SUMMARY | 2025-06-17 13:25 | XMS_ITS | Encounter Summary ---
Author Organization [facility] Address [address] [place] [address] Phone Care Team Providers Care Slip Presser Name Role Phone Zhang Yana Rico NP Unavailable [phone] Rocío Malik MD Unavailable [phone] Anthony Bee MD Unavailable [phone] Ada Suárez MD Unavailable [phone] Anthony Bee MD Primary Care Provider Encounter Details Date Type Department Care Team (Late st Contact Info) Description 12/11/2018 Ancillary Orders Virtual Department 30 [place] [address] Anthony Bee MD [address] [place] [address] [facility] Maritza [place], [place] [id number] Breast screening; Osteopenia, unspecified location Social History Tobacco Use Types Packs/Day Years Used Date Smoking Tobacco: Never Smokeless Tobacco: Never Alcohol Use Standard Drinks/Week Comments Yes 0 (1 standard drink = 0.6 oz pur e alcohol) Comments No Sex and Gender Information Value Date Recorded Sex Assigned at Female 05/05/2020 3:14 PM EDT Legal Sex Female 10:00 PM EDT Gender Identity Female 05/05/2020 3:14 PM EDT Sexual Orientation Not on file documented as of this encounter Plan of Treatment Not on file documented as of this encounter Results * BI MAMMOGRAM SCREENING WITH TOMOSYNTHESIS WITH CAD (BILATERAL) (04/09/2019 8:42 AM EDT) Anatomical Region Laterality Modality Breast Left, Breast Right, Breast Bilateral Bila teral Mammography 04/09/2019 6:25 PM EDT Impressions 04/09/2019 6:29 PM EDT No mammographic change indicative of malignancy. Routine screening is recommended. BI-RADS CATEGORY: 1 - Negative. DENSITY: There are scattered fibroglandular densities. POS - CDHMAMA Narrative 04/09/2019 6:29 PM EDT FINDINGS: Bilateral full-field digital screening mammography is obtained and read in conjunction with computer-aided detection. 3-D tomosynthesis as well as 2-D C view imaging is also performed. Comparison includes the most recent exam from 04/07/2018 and as far back as 03/25/2013. Breasts are composed of scattered fibroglandular tissue. No new suspicious mass, suspicious microcalcifications, architectural distortion, focal skin thickening, or new asymmetry is detected. Procedure Note Lester Wilhelm MD - 04/09/2019 FINDINGS: Bilateral full-field digital screening mammography is obtained and read inconjunction with computer-aided detection. 3-D tomosynthesis as well as2-D C view imaging is also performed. Comparison includes the most recentexam from 04/07/2018 and as far back as 03/25/2013. Breasts are composed of scattered fibroglandular tissue. No newsuspicious mass, suspicious microcalcifications, architectural distortion,focal skin thickening, or new asymmetry is detected. IMPRESSION: No mammographic change indicative of malignancy. Routine screening isrecommended. BI-RADS CATEGORY: 1 - Negative. DENSITY: There are scattered fibroglandular densities. POS - CDHMAMA us Anthony Bee MD IMG MG EXAMS Final R esult * BD DXA AXIAL (SPINE) WITH HIP (04/09/2019 8:21 AM EDT) Anatomical Region Laterality Modality Bone Density Bone Density 04/09/2019 8:29 AM EDT Impressions 04/09/2019 8:32 AM EDT Osteopenia. Decrease in density at a significant level in both proximal femora since prior study of 2015. POS -[id number] Narrative 04/09/2019 8:32 AM EDT This is a 69-year-old postmenopausal white female with a perceived height loss of 1 inch over her lifetime. There is a history of osteopenia. Comparison is made prior study of March 2016. Evaluation of the lumbar spine and hips was performed and appears to be technically adequate. Total bone mineral density in the L1-L4 vertebral bodies was calculated at 1.100 gm/cm2 with a T score of 0.5. This falls within the WHO classification of normal. Since prior study there has been no significant change. There is degenerative change from L2 to L4 which may elevate the density. Total bone mineral density in the right proximal femur was calculated at 0.688 gm/cm2 with a T-score of -2.1 falling within the WHO classification of osteopenia. Total bone mineral density in the left proximal femur was calculated at 0.699 gm/cm2 with a T-score of -2.0 falling within the WHO classification of osteopenia. Patient's Z score on each side is -0.7. Since prior study there is a decrease in density of 5.3% on the right at 4.2% on the left. Both these are statistically significant at the 95% confidence interval. Procedure Note Bernardino Mitchell MD - 04/09/2019 This is a 69-year-old postmenopausal white female with a perceived heightloss of 1 inch over her lifetime. There is a history of osteopenia.Comparison is made prior study of March 2016. Evaluation of the lumbar spine and hips was performed and appears to betechnically adequate. Total bone mineral density in the L1-L4 vertebral bodies was calculated at1.100 gm/cm2 with a T score of 0.5. This falls within the WHOclassification of normal. Since prior study there has been no significantchange. There is degenerative change from L2 to L4 which may elevate thedensity. Total bone mineral density in the right proximal femur was calculated at0.688 gm/cm2 with a T-score of -2.1 falling within the WHO classificationof osteopenia. Total bone mineral density in the left proximal femur wascalculated at 0.699 gm/cm2 with a T-score of -2.0 falling within the WHOclassification of osteopenia. Patient's Z score on each side is -0.7.Since prior study there is a decrease in density of 5.3% on the right at4.2% on the left. Both these are statistically significant at the 95%confidence interval. IMPRESSION: Osteopenia. Decrease in density at a significant level in both proximalfemora since prior study of 2015. POS -[id number] Anthony Bee MD IMG BD BONE DENSITY DEX A Final Result documented in this encounter Visit Diagnoses Diagnosis Breast screening Breast screening, unspecified Osteopenia, unspecified location Osteopenia, unspecified location Breast screening Breast screening, unspecified documented in this encounter Care Teams Slip Presser Relationship Specialty Start Date End Date Anthony Bee MD [address] [place] [address] Dr ALMARAZ [address] [place] [address] PCP - General 10/09/17 Yana Holcomb NP [address] [place] [address] [email or web address] Historical LMR Provider 07/23/17 10/13/21 Rocío Malik MD [address] [place] [email or web address] Historical LMR Provider 07/23/17 Anthony Bee MD [address] [place] [address] [place] [address] Historical LMR Provider 07/23/17 Ada Suárez MD [address] [place] [id number] [email or web address] Historical LMR Provider 07/23/17 10/13/21 documented as of this encounter Additional Source Comments The information contained in this document represents components of the legal health record. It is not the complete legal health record.[facility]
--- OUTSIDE RECORDS SUMMARY | 2025-06-17 13:25 | XMS_ITS | Encounter Summary ---
Author Organization [facility] Address [address] [place] [address] Phone Care Team Providers Care Virtualization Engineer Name Role Phone Rocío Malik MD Unavailable [phone] Anthony Bee MD Unavailable [phone] Anthony Bee MD Primary Care Provider Encounter Details Date Type Department Care Team (Late st Contact Info) Description 05/31/2024 Procedure Pass [facility] [address] [place] [address] Social History Tobacco Use Types Packs/Day Years [...] on filedocumented in this encounter Care Teams Virtualization Engineer Relationship Specialty Start Date End Date Anthony Bee MD [address] [place] [address] [place] [address] PCP - General 10/09/17 Rocío Malik MD [address] [place] [address], [address] [place] [address] [email or web address] Historical LMR Provider 07/23/17 Anthony Bee MD [address] [place] [address] [place] [address] Historical LMR Provider 07/23/17 documented as of this encounter Additional Source Comments The information contained in this document represents components of the legal health record. It is not the complete legal health record.[facility]
--- OUTSIDE RECORDS SUMMARY | 2025-06-17 13:25 | XMS_ITS | Patient Health Record ---
Author Organization Anthony Bee MD Address [address] [place], [place] [id number] Care Team Providers Care Account Information Clerk Name Role Phone Anthony Bee Primary Care Provider Allergies Allergen (clinical drug ingredient) Drug/Non Drug Allergy documented on EMR Reaction Allergy Type Onset Date Status penicillin (uncoded) hives Allergy Active Results Component Value Reference Range Notes Complete Blood Count Auto Di ff Reviewed date:12/06/2024 04:06:50 PM Interpretation: Performing Lab:[facility], [address] [place] [phone] Notes/Report: White Blood Count 3.5 4.8-10.8 X10*3/uL [...] NRBC Abs Auto 0.000 0.0-0.012 X10*3/uL Comprehensive [place]. Panel Fa st Reviewed date:12/06/2024 04:05:38 PM Interpretation: Performing Lab:[address] [address] Notes/Report: Sodium 145 135-145 mmol/L Potassium 4.1 [...] Panel Reviewed date:12/06/2024 12:32:40 PM Interpretation: Performing Lab:[address] [place] [address] Notes/Report: Triglycerides 61 <150 mg/dL Desirable Triglyceride: [...] T4 Reviewed date:12/06/2024 12:30:02 PM Interpretation: Performing Lab:[address] [phone] Notes/Report: TSH reflex Free T4 1.27 0.32-4.0 uIU/mL UA ClnCatch+Micro w/rflx Cul t Reviewed date:12/06/2024 12:58:25 PM Interpretation: Performing Lab:[facility], [address] [place] [phone] Notes/Report: [id number] Urine, Clean Catch Color Urine Yellow Appearance Urine Clear PH 5.5 5.0-9.0 Glucose Urine UA Negative Negative mg/dL Urine Blood Negative Negative Specific [place] - Urine 1.015 1.005-1.025 Urine Protein Negative Neg-Trace mg/dL Urine Ketones Negative Negative mg/dL Nitrite Urine Negative Negative Leukocyte Esterase Urine Trace Negative RBC Urine 0-2 0-2 /HPF WBC Urine 0-5 0-5 /HPF Squamous Epithelial Cell Urine 0-2 0-2 /HPF Bacteria Urine None Seen None Seen Hyaline Casts Urine 0-2 0-2 /LPF Complete Blood Count Auto Di ff (Not yet reviewed by provider) Interpretation: Performing Lab:[address] [address] Notes/Report: White Blood Count 3.8 4.8-10.8 X10*3/uL [...] T4 Reviewed date:06/17/2025 12:50:00 PM Interpretation: Performing Lab:[facility], [address] [place] [phone] Notes/Report: TSH reflex Free T4 0.83 0.32-4.0 uIU/mL Denny Joshi Reviewed date:12/06/2024 12:29:12 PM Interpretation: Performing Lab:[facility], [address] [place] [phone] Notes/Report: Denny Joshi See Note Specimen held untested for 24 hours; Call to request Chemistry testing. Denny Joshi Reviewed date:06/17/2025 12:32:50 PM Interpretation: Performing Lab:[facility], [address] [facility], [place] [address] Notes/Report: Denny Joshi See Note Specimen held [...] TABLET ONCE D AILY for 90 Active Immunizations Vaccine Route Administration Date Status Comme nts Flu Vaccine Unknown 07/08/2012 Administered Flu Vaccine Unknown 07/23/2014 Administered [facility] Fluarix Quadrivalent IM Intramuscular 06/27/2015 Administered Shingles IM Intramuscular 04/22/2016 Administered Fluarix Quadrivalent IM Intramuscular 07/02/2016 Administered PPSV23 (Pnemovax) IM Intramuscular 11/15/2016 Administered Fluarix Quadrivalent IM Intramuscular 07/01/2017 Administered Prevnar 13 IM Intramuscular 11/18/2017 Administered Fluarix Quadrivalent IM Intramuscular 07/21/2018 Administered TDaP IM Intramuscular 12/15/2017 Administered given at the [facility] in [place]. Fluarix Quadrivalent IM Intramuscular 07/02/2019 Administered Shingrix IM Intramuscular 05/09/2020 Administered [facility] [employer]. Influenza High Dose Unknown 07/09/2020 Administered [facility] Unknown 07/09/2020 Administered [facility] SARS-COV-2 Pfizer Unknown 11/25/2020 Administered SARS-COV-2 Pfizer Unknown 12/18/2020 Administered SARS-COV-2 Pfizer Unknown 07/01/2021 Administered Influenza High Dose IM Intramuscular 06/26/2023 Administered Influenza High Dose IM Intramuscular 06/14/2024 Administered Influenza High Dose IM Intramuscular 06/17/2025 Administered Social History Tobacco Use: Social History [...] Status W/U Status Risk Notes Problem Neutropenia (186759127) Neutropenia (D70.9) Active confirmed Problem [id number] Lymphocytosis (D72.820) Active confirmed Problem [id number] Acquired hypothyroidism (E03.9) Active confirmed Vital Signs Blood pressure diastolic 64 mm Hg 12/13/2024 Height 70 in 12/13/2024 Blood pressure systolic 108 mm Hg 12/13/2024 Weight 166 lbs 12/13/2024 BMI 23.82 kg/m2 12/13/2024 Encounters Encounter Location Date Provider Diagnosis Anthony Bee MD [address] [place] [id number] 12/06/2024 Anthony Bee Acquired hypothyroidism E03.9 and Lymphocytosis D72.820 Anthony Bee MD [address] [id number] 06/17/2025 Anthony Bee Acquired hypothyroidism E03.9 ; Neutropenia D70.9 and Encounter for administration of vaccine Z23 Anthony Bee MD [address] [id number] 06/21/2024 Anthony Bee Acquired hypothyroidism E03.9 Anthony Bee MD [address] [id number] 12/13/2024 Anthony Bee Acquired hypothyroidism E03.9 ; Neutropenia D70.9 and Depression screening Z13.31 Anthony Bee MD [address] [id number] 05/09/2025 Anthony Bee MD [address] [place] [id number] 12/11/2024 Anthony Bee Assessments Encounter Date Diagnosis (ICD Code) Assessment Notes Treatment Notes Treatment Clinical Notes Section Notes 12/06/2024 Acquired hypothyroidism (ICD-10 - E03.9) 06/17/2025 Acquired hypothyroidism (ICD-10 - E03.9) 06/17/2025 Neutropenia (ICD-10 - D70.9) 06/21/2024 Acquired hypothyroidism (ICD-10 - E03.9) doing well on present meds, at goal 12/13/2024 Acquired hypothyroidism (ICD-10 - E03.9) labs to be done in 6 months , will contibue current regiment 12/13/2024 Neutropenia (ICD-10 - D70.9) will continue to monitor 12/06/2024 Lymphocytosis (ICD-10 - D72.820) 06/17/2025 Encounter for administration of vaccine (ICD-10 - Z23) 12/13/2024 Depression screening (ICD-10 - Z13.31) negative screen Plan Of Treatment Pending Test Test Name Order Date Electrocardiogram (EKG) 11/19/2019 Electrocardiogram (EKG) 10/27/2015 Electrocardiogram (EKG) 11/15/2016 Electrocardiogram (EKG) 11/14/2017 Complete Blood Count Auto Diff 5 Complete Blood Count Auto Diff 5 TSH reflex Free T4 12/13/2024 Next Appt Details Provider Name:Anthony Lakematias ier, 12/09/2025 07:30:00 AM, [address] [place] [address], [address], [phone], Provider Name:Anthony Holder ier, 12/16/2025 09:30:00 AM, [address] [place] [address], [address], [id number], Insurance Providers Payer Name Payer Address Payer Phone Subscriber Number Group Number Insured Name Patient Relationship to Insured Coverage Start Date Coverage End Date MEDICARE NHIC [address] [place] [address] [id number] Ttaiana Rowley Self - patient is the insured [employer] [place] [address] [place] [phone] [id number] Tatiana Rowley Self - patient is the insured Medical (General) History Medical History History ICD Code colonoscopy 2011 due in 10 years (Dr Bergman ss)colonoscopy 2022 neg no other
--- OUTSIDE RECORDS SUMMARY | 2025-06-17 13:25 | XMS_ITS | Encounter Summary ---
Author Organization [facility] Address [address] [place] [address] Phone Care Team Providers Care Enamel Machine Operator Name Role Phone Yana Holcomb Trisha ANVIL WORKER Unavailable [phone] Rocío Malik MD Unavailable [phone] Anthony Bee MD Unavailable [phone] Ada Suárez MD Unavailable [phone] Anthony Bee MD Primary Care Provider Encounter Details Date Type Department Care Team (Late st Contact Info) Description 04/10/2021 Procedure Pass [address] [address] Social History Tobacco Use Types Packs/Day Years [...] on filedocumented in this encounter Care Teams Enamel Machine Operator Relationship Specialty Start Date End Date Anthony Bee MD [address] [place] [address] [place] [address] PCP - General 10/09/17 Yana Holcomb NP [address] [place] [address] [email or web address] Historical LMR Provider 07/23/17 10/13/21 Rocío Malik MD [address] [place] [address], [address] [place] [address] [email or web address] Historical LMR Provider 07/23/17 Anthony Bee MD [address] [place] [address] [place] [address] Historical LMR Provider 07/23/17 Ada Suárez MD [address] [address] [email or web address] Historical LMR Provider 07/23/17 10/13/21 documented as of this encounter Additional Source Comments The information contained in this document represents components of the legal health record. It is not the complete legal health record.[facility]
--- OUTSIDE RECORDS SUMMARY | 2025-06-17 13:25 | XMS_ITS | Encounter Summary ---
Author Organization [facility] Address [address] [place] [address] Phone Care Team Providers Care Game Preserve Manager Name Role Phone Rocío Malik MD Unavailable Anthony Bee MD Unavailable [phone] Anthony Bee MD Primary Care Provider Encounter Details Date Type Department Care Team (Late st Contact Info) Description 05/31/2024 Transcribe Orders Virtual Department [address] [place] [address] Anthony Bee MD [address] [place] [address] [place] [address] Breast screening (Primary Dx) Social History Tobacco [...] MAMMOGRAM SCREENING WITH TOMOSYNTHESIS WITH CAD (BILATERAL) (09/27/2024 11:06 AM EST) Anatomical Region Laterality Modality Breast Left, Breast Right, Breast Bilateral Bila teral Mammography 09/28/2024 12:4 6 PM EST Impressions 09/28/2024 12:47 PM EST No mammographic evidence of malignancy in either breast. Annual screening mammography is recommended. BI-RADS 1 NEGATIVE The patient will be notified of the results and recommendations. Narrative 09/28/2024 12:47 PM EST BI MAMMOGRAM SCREENING WITH TOMOSYNTHESIS WITH CAD (BILATERAL) Additional patient information: Screening. COMPARISON: Comparison is made with relevant prior imaging. Breast composition: There are scattered areas of fibroglandular density. FINDINGS: No abnormal masses, suspicious calcifications, or other significant findings are identified mammographically in either breast. There has been no significant interval change. Procedure Note Mone Danielson MD - 09/28/2024 BI MAMMOGRAM SCREENING WITH TOMOSYNTHESIS WITH CAD (BILATERAL) Additional patient information: Screening. COMPARISON: Comparison is made with relevant prior imaging. Breast composition: There are scattered areas of fibroglandular density. FINDINGS: No abnormal masses, suspicious calcifications, or other significantfindings are identified mammographically in either breast. There has been no significant interval change. IMPRESSION: No mammographic evidence of malignancy in either breast. Annual screening mammography is recommended. BI-RADS 1 NEGATIVE The patient will be notified of the results and recommendations. us Anthony Bee MD IMG MG EXAMS Final R esult documented in this encounter Visit Diagnoses Diagnosis Breast screening- Primary Breast screening, unspecified Breast screening Breast screening, unspecified documented in this encounter Care Teams Game Preserve Manager Relationship Specialty Start Date End Date Anthony Bee MD [address] [place] [address] Dr [address]AZ [address] [place] [address] PCP - General 10/09/17 Rocío Malik MD [address] [place] [address], [address] [place] [address] [email or web address] Historical LMR Provider 07/23/17 Anthony Bee MD [address] [place] [address] Dr ALMARAZ [address] [place] [address] Historical LMR Provider 07/23/17 documented as of this encounter Additional Source Comments The information contained in this document represents components of the legal health record. It is not the complete legal health record.[facility]
--- OUTSIDE RECORDS SUMMARY | 2025-06-17 13:26 | XMS_ITS | Encounter Summary ---
Author Organization [facility] Address [address] [place] [address] Phone Care Team Providers Care Equipment Mechanic Specialist Name Role Phone Yana Holcomb Trisha STEREO PLOTTER OPERATOR Unavailable [phone] Rocío Malik MD Unavailable [phone] Anthony Bee MD Unavailable [phone] Ada Suárez MD Unavailable [phone] Anthony Bee MD Primary Care Provider Encounter Details Date Type Department Care Team (Late st Contact Info) Description 06/07/2020 Procedure Pass [address] [address] Social History Tobacco Use Types Packs/Day Years [...] on filedocumented in this encounter Care Teams Equipment Mechanic Specialist Relationship Specialty Start Date End Date Anthony Bee MD [address] [place] [address] [place] [address] PCP - General 10/09/17 Yana Holcomb NP [address] [place] [address] [email or web address] Historical LMR Provider 07/23/17 10/13/21 Rocío Malik MD [address] [place] [address], [address] [place] [address] [email or web address] Historical LMR Provider 07/23/17 Anthony Bee MD [address] [place] [address] [place] [address] Historical LMR Provider 07/23/17 Ada Suárez MD [address] [address] [email or web address] Historical LMR Provider 07/23/17 10/13/21 documented as of this encounter Additional Source Comments The information contained in this document represents components of the legal health record. It is not the complete legal health record.[facility]
--- OUTSIDE RECORDS SUMMARY | 2025-06-17 13:26 | XMS_ITS | Patient Health Record ---
Author Organization [facility] Address [address] [place] [address] Care Team Providers Care Hedge Fund Accountant Name Role Phone Rohit MATIAS, Anthony Primary Care Provider Jhony Josue [phone] Allergies Allergen (clinical drug ingredient) Drug/Non Drug Allergy documented on EMR Reaction Allergy Type Onset Date Status PCN (uncoded) Unknown Allergy Active Reason For Referral No Information Medications Medication SIG (Take, Route, Frequency, Duration) Notes Start Date End Date Status Vitamin D (Cholecalciferol) 25 MCG (1000 UT) 1 capsule Orally Once a day for 30 day(s) Active Levoxyl Active Multivitamin - as directed Orally Active Immunizations Vaccine Route Administration Date Status Comme nts Influenza Unknown 08/07/2022 Administered Social History Alcohol Screen Question Answer Notes Did you [...] Never (0 point) Points 1 Interpretation Negative Section Notes: She does not smoke, and just uses occasional alcohol She does not smoke, and just uses occasional alcohol Problems Problem Type SNOMED Code ICD Code Onset Dates Problem Status W/U Status Risk Notes Problem Colon cancer screening (557064642) Colon cancer screening (Z12.11) Active confirmed Problem Preprocedural examination (937086566466763) Preprocedural examination (Z01.818) Active confirmed Problem Diverticulosis of colon (598225671) Diverticulosis of colon (K57.30) Active confirmed Plan Of Treatment Future Test Test Name Order Date COLONOSCOPY 12/11/2011 COLONOSCOPY 08/14/2022 Insurance Providers Payer Name Payer Address Payer Phone Subscriber Number Group Number Insured Name Patient Relationship to Insured Coverage Start Date Coverage End Date MEDICARE OF [place] [address] [place] [address] [id number] NELSY DEVI Self - patient is the insured [employer] ATT[employer] CLAIMS [address] [place] [address] [id number] NESLY DEVI Self - patient is the insured Medical (General) History Medical History History ICD Code Hypothyroidism Denies [place],DM,CVA,Lung disease,renal dise ase Negative screening colonosco py in 03/2012 with me, and a negative screening colonoscopy in approximately 2001 at [facility]. Surgical History Surgery Date(Month/Year) Laparoscopy for an ovarian cyst Inguinal Hernia age 5 Torn Right ACL
--- OUTSIDE RECORDS SUMMARY | 2025-06-17 13:26 | XMS_ITS | Clinical Summary ---
Author Organization [facility] Address [address] [place] [address] Phone Care Team Providers Care Field Support Technician Name Role Phone Rocío Malik MD Unavailable [phone] Anthony Bee MD Unavailable [phone] Anthony Bee MD Primary Care Provider Allergies Active Allergy Reactions Criticality Noted Date Comments Penicillin Hives 01/30/2016 Medications Medication-Free Text vitamin D 2,000 mg Active LEVOTHYROXINE SODIUM (LEVOXYL ORAL) Active therapeutic multivitamin tablet Take 1 tablet by mouth daily. Active Active Problems Problem Noted Date Diagnosed Date Acquired hypothyroidism 01/05/2018 Encounters Date Type Department Care Team Description 05/26/2025 11:40 AM EDT Office Visit [facility] [address] [place] [address] [place] [address] Rocío Malik MD Encounter for gynecological examination without abnormal finding (Primary Dx) 05/09/2025 6:52 AM EDT - 05/09/2025 7:47 AM EDT Emergency [facility] [address] [place] [address] Kadeem Clemente MD Discharge Disposition: Home or Self Care 03/30/2025 8:20 AM EDT Office Visit [facility] [address] [place] [address] Brantley, April Jane, ENTERPRISE APPLICATION DEVELOPER Sinus congestion (Primary Dx) from Last 3 Months Immunizations Immunization Administration Dates Next Due INFLUENZA, SPLIT VIRUS, TRIVALENT PF ,07/21/2018,07/01/2017,2015 Pneumococcal conjugate PCV13 11/18/2017 Pneumococcal polysaccharide PPSV23 11/15/2016 Tdap 12/15/2017 Zoster live 04/22/2016 Zoster recombinant 05/09/2020 Family History Medical History Relation Comments Esophageal cancer Father Heart attack Father Dementia Mother Osteoporosis Mother Breast cancer Neg Hx Relation Status Comments Father Mother Social History Tobacco Use Types Packs/Day Years Used Date Smoking Tobacco: Never Smokeless Tobacco: Never Tobacco Cessation:Counseling Given: Not Answered Alcohol Use Standard Drinks/Week Comments Not Currently 0 (1 standard drink = 0.6 oz pur e alcohol) Socially Education Answer Date Recorded Are you interested in more education? Not on priscilla e 01/31/2023 Are you concerned about learning? Not on file 01/31/2023 No 01/31/2023 No 01/31/2023 Food Answer Date Recorded Within the past 6 months we worried whether our food would run out before we got money to buy more. I choose not to answer 05/09/2025 Within the past 6 months the food we bought just didn't last and we didn't have enough money to get more. I choose not to answer 05/09/2025 Residential Stability Answer Date Recor ded What is your housing situation today? I choose n ot to answer 05/09/2025 How many times have you move d in the past 12 months? I choose not to answer 05/09/2025 Paying for Meds Answer Date Recorded Do you have trouble paying for medicines? I [place] se not to answer 05/09/2025 Paying Utility Bills Answer Date Record ed Do you have trouble paying y our heating or electricity bill? I choose not to answer 05/09/2025 Transportation Answer Date Recorded Has the lack of transportati on kept you from medical appointments or from getting medications? I choose not to answer 05/09/2025 Digital Access Answer Date Recorded No 05/09/2025 No 05/09/2025 Do you have reliable internet access at home? I choose not to answer 05/09/2025 Do you have a device (e.g., phone, tablet, computer) with a working camera? I choose not to answer 05/09/2025 Intimate Partner Violence Answer Date R ecorded Are you denied basic needs s uch as food, clothing, or medical care? No 05/09/2025 In the past 12 months have y ou been in a relationship with a person who hurts, threatens, or tries to control you? No 05/09/2025 Are you denied basic needs s uch as food, clothing, or medical care? No 05/09/2025 In the past 12 months have y ou been in a relationship with a person who hurts, threatens, or tries to control you? No 05/09/2025 Comments No Sex and Gender Information Value Date Recorded Sex Assigned at Female 05/05/2020 3:14 PM EDT Legal Sex Female 10:00 PM EDT Gender Identity Female 05/05/2020 3:14 PM EDT Sexual Orientation Not on file Last Filed Vital Signs Vital Sign Reading Time Taken Comments Blood Pressure 112/70 05/26/2025 11:37 AM EDT Pulse 72 05/09/2025 6:15 AM EDT Temperature 35.7 C (96.3 F) 05/09/2025 6:15 AM EDT Respiratory Rate 16 05/09/2025 6:15 AM EDT Oxygen Saturation 97% 05/09/2025 6:15 AM EDT Inhaled Oxygen Concentration - - Weight 70 kg (154 lb 6.4 oz) 05/26/2025 11:37 AM EDT Height 177.8 cm (5' 10 ) 05/26/2025 11:37 AM EDT Body Mass Index 22.15 05/26/2025 11:37 AM EDT Plan of Treatment Health Maintenance Due Date Last Done Comments LIPID PANEL 1952 TSH LEVEL 1952 DEPRESSION SCREENING 1964 HEPATITIS C SCREENING 1970 COLOGUARD 1997 COLONOSCOPY 1997 COLORECTAL CANCER SCREENING 1997 FIT TEST 1997 FOBT 1997 SIGMOIDOSCOPY 1997 VIRTUAL COLONOSCOPY 1997 PNEUMOCOCCAL VACCINES (50+ years) (3 of 3 - PCV20 or PCV21) 11/18/2022 11/18/2017, 11/15/2016 INFLUENZA VACCINE (#1) 2025 , 06/26/2023, 06/25/2022, Additional history exists MAMMOGRAM 09/27/2026 09/27/2024, 08/07, 08/23/2022, Additional history exists Adult Td,Tdap Booster 12/16/2027 12/15/2017 OSTEOPOROSIS SCREENING INITIAL (ONE-TIME) Completed 04/09/2019 ZOSTER VACCINES Completed 07/09/2020, 01/2020, 04/22/2016 RSV VACCINE Completed 07/22/2024 COVID-19 VACCINE Completed 02/02/2025, , 07/23/2023, Additional history exists SMOKING STATUS SCREENING (Once After 26 Yrs) Completed 05/26/2025 HEPATITIS A VACCINES Aged Out No long er eligible based on patient's age to complete this topic HIB VACCINES Aged Out No longer eligi ble based on patient's age to complete this topic MENINGOCOCCAL VACCINES (ACWY) Aged Out No longer eligible based on patient's age to complete this topic MENINGOCOCCAL VACCINES (B) Aged Out N o longer eligible based on patient's age to complete this topic Medical Devices Not on file Procedures Procedure Name Priority Date/Time Associated Diagnosis Comments POCT COVID-19 RT-PCR/INFLUENZA A & B/RSV CEPHEID Routine 03/30/2025 8:27 AM EDT POCT RAPID STREP A Routine 03/30/2025 8: 27 AM EDT BI MAMMOGRAM SCREENING WITH TOMOSYNTHESIS WITH CAD (BILATERAL) Routine 09/27/2024 11:06 AM EST Breast screening BD DXA AXIAL (SPINE) WITH HIP Routine 04/09/2019 8:21 AM EDT Osteopenia, unspecified location from Last 3 Months or Most Recently Relevant to Health Maintenance Results * POCT COVID-19 RT-PCR/Influenza A & B/RSV (Cepheid) (03/30/2025 8:27 AM EDT) [facility] RSV PCR Negative Negative [facility] SARS-CoV-2 (COVID-19) Negative Negative [facility] P[facility] Influenza A PCR Negative Negative [facility] Influenza B PCR Negative Negative [facility] 03/30/2025 8:27 AM EDT 03/30/2025 9:06 AM EDT Apriljodee Sosachantel Brantley ENTERPRISE APPLICATION DEVELOPER POINT OF CARE TEST ORDERAB LES Final Result Performing Organization Address City/[facility]/ZIP Co de Phone Number [facility] [address], [facility] [phone] * POCT Rapid Strep A (03/30/2025 8:27 AM EDT) Strep A, PCR Not Detected Not Detected [facility] 03/30/2025 8:27 AM EDT 03/30/2025 8:52 AM EDT us April Brantley ENTERPRISE APPLICATION DEVELOPER POINT OF CARE TEST ORDERAB LES Final Result Performing Organization Address [facility] Co de Phone Number [facility] [address] [phone] * BI MAMMOGRAM SCREENING WITH TOMOSYNTHESIS WITH [...] femora since prior study of 2015. POS -[id number] Narrative 04/09/2019 8:32 AM EDT This is [...] proximalfemora since prior study of 2015. POS -[id number] Anthony Bee MD [facility] BD BONE DENSITY DEX A Final Result from Last 3 Months or Most Recently Relevant to Health Maintenance Insurance MEDICARE PART A & B [employer] SUPPLEMENT MEDICARE PART A & B [employer] MED[employer] SUPPLEMENT MEDICARE PART A & B [employer] MEDEX SUPPLEMENT MEDICARE PART A & B [employer] MEDEX SUPPLEMENT MEDICARE PART A & B [employer] MEDEX SUPPLEMENT MEDICARE PART A & B [employer] MEDEX SUPPLEMENT MEDICARE PART A & B [employer]OSS MEDEX SUPPLEMENT MEDICARE PART A & B [employer] CROSS MEDEX SUPPLEMENT MEDICARE PART A & B [employer] MEDEX SUPPLEMENT Care Teams Field Support Technician Relationship Specialty Start Date End Date Anthony Bee MD [address] [place] [address] [place] [address] PCP - General 10/09/17 Rocío Malik MD [address] [place] [address], [address] [place] [address] [email or web address] Historical LMR Provider 07/23/17 Anthony Bee MD [address] [place] [address] [place] [address] Historical LMR Provider 07/23/17 Additional Source Comments The information contained in this document represents components of the legal health record. It is not the complete legal health record.[facility]
== END 2025-06-17 11:17 | disposition home or self-care (01) ==
LOC: HO.LNP 11:16
PROVIDERS: Visit Provider Internal Medicine
DX: E03.9 Hypothyroidism, unspecified (principal); D70.9 Neutropenia, unspecified
CPT/HCPCS: 84443; 85025